=== PATIENT | female | born 1945 | race Caucasian/White ===

== ENCOUNTER → 2017-01-01 | Outpatient (CLI) | payer OTHER ==
[~2017-01-01] MED LIST: ACET-1138 PO; ACET-1256 PO; ASCAUNK PO; ASPCH81X PO; ASPI81TA28 PO; ATOR-14 PO; ATVUNK PO; CALC500C70 PO; CALCTAB13 PO; CLB200 PO; COEN100C11 PO; FLUT0.15 NAE; GLUC250C PO; GLUCTAB7 PO; LEVO112T4 PO; LEVO150T9 PO; LISI-461 PO; LISI10TA PO; MECL25TA2 PO; MULTTAB58 PO; NYSCR30 EXT; OMEG12006 PO; OMEP20CA9 PO; POLYSOL4 OPB; RXC5 PO; SNK PO; VITA400C3 PO
--- NOTE | 2017-01-01 12:40 | MAMMOGRAPHY REPORT ---
BILATERAL DIGITAL SCREENING MAMMOGRAM WITH CAD: 01/01/2017 CLINICAL HISTORY: Routine screening. Patient has no complaints. TECHNIQUE: Current study was also evaluated with a Computer Aided Detection (CAD) system. Bilatera l CC and MLO views were obtained. COMPARISON: Comparison is made to exams dated: 12/07/2015 mammogram, 11/06/2014 mammogram, 11/02/2013 mammogram, 10/28/2012 mammogram, 10/03/2011 mammogram, and 09/30/2010 mammogram - [facility]. BREAST COMPOSITION: There are scattered areas of fibroglandular density in both breasts. FINDINGS: No suspicious masses, calcifications, or areas of architectural distortion are noted in e ither breast. There has been no significant interval change compared to prior exams. Scattered bila teral benign-appearing calcifications are not significantly changed. An oval 4 mm mixed density mas s including fat density is seen within the left lateral breast on the cc view, and is consistent wit h benign fat necrosis. IMPRESSION: ACR BI-RADS CATEGORY 2: BENIGN There is no mammographic evidence of malignancy. A 1 year screening mammogram is recommended. The p atient will receive written notification of the results. Approximately 10% of breast cancers are not detected with mammography. A negative mammographic repor t should not delay biopsy if a clinically suggestive mass is present. Emma Torrez M.D. /:01/01/2017 10:25:39 Nitrating Acid Mixer: Silvia KHOURY)([place]), [facility] letter sent: Normal 1/2 BI-RADS Code: ACR BI-RADS Category 2: Benign
== END | disposition home or self-care (01) ==
LOC: C.MAMM 08:53
PROVIDERS: ATTEND Family Medicine
DX: Z12.31 Encounter for screening mammogram for malignant neoplasm of breast (principal)

== ENCOUNTER → 2017-03-09 | Day surgery (SDC) | payer OTHER ==
[2017-02-25 07:53] VITALS: Ht 165.1 cm; Wt 86.4 kg
[~2017-03-09] VITALS: Ht 165.1 cm; Wt 86.4 kg
[~2017-03-09] MED LIST changes: +500ML BSS 0.3ML EPI 1:1000PF IRRIG ONE; -ACET-1138 PO; +ACETAMINOPHEN 325 MG TAB PO PRN; +AMVISC PLUS 0.8ML SYRINGE INT OCU ONE; -ASPI81TA28 PO; +ATROPINE SULFATE 0.1 MG/ML 5ML SYR IV PRN; -ATVUNK PO; +BRIMONIDINE TART 0.2% OP SOLN PER DROP CHARGE ONE; +BSS FLUSH ONE; -CALCTAB13 PO; -CLB200 PO; +ENDOCOAT 0.85ML SYRINGE INT OCU ONE; +EpHEDrine SULFATE INJ 50 MG/ML AMP IV PRN; +EpINEphrine INJ 1MG/ML AMP 1 MG/ML AMP ONE; -GLUC250C PO; +LACTATED RINGER'S 1000ML 500 ML IV SCH; -LEVO150T9 PO; +LIDOCAINE 4% OP SOLN DROP CHARGE ONE; +LIDOCAINE 4% OP SOLN DROP CHARGE OPR SCH; +LIDOCAINE HCL 1% MPF 2 ML VIAL ONE; -LISI-461 PO; +MIDAZOLAM HCL 1 MG/ML 2ML VIAL ONE; +MOXIFLOXACIN OPH SOLN PER DROP CHARGE ONE; -NYSCR30 EXT; +POVIDONE-IODINE OP SOLN 30 ML BTL ONE; +PROPARACAINE 0.5% OP SOLN PER DROP CHARGE OPR SCH; -RXC5 PO; -SNK PO; +TOBRAMYCIN/DEXAMETHASONE OPH OINT PER APPLN CHARGE ONE
[2017-03-09] MEDS: PHENYLEPHRINE HCL 2.5% OP SOLN PER DROP CHARGE OPR SCH ×2 (09:01→09:06)
[2017-03-09] MEDS: TROPICAMIDE 1% OP SOLN PER DROP CHARGE OPR SCH ×2 (09:02→09:07)
[2017-03-09] MEDS: CYCLOPENTOLATE HCL 1% OP SOLN PER DROP CHARGE OPR SCH ×2 (09:02→09:07)
[2017-03-09] MEDS: KETOROLAC 0.5% OP SOLN PER DROP CHARGE OPR SCH ×2 (09:04→09:08)
[2017-03-09] MEDS: MOXIFLOXACIN OPH SOLN PER DROP CHARGE OPR SCH ×2 (09:05→09:09)
--- NOTE | 2017-03-09 09:21 | History & Physical Bridge - [place] ---
H&P Re-Evaluation Bridge Note: I have examined the patient, reviewed the History & Physical and in the interval since the performance of the History & Physical I have noted the following changes of clinical significance: No changes noted
--- NOTE | 2017-03-09 10:12 | [facility] Post Operative Brief Note ---
Immediate Operative Summary Operative Date March 09, 2017. Pre-Operative Diagnosis Cataract Right Eye Post-Operative Diagnosis Same Procedure(s) Performed Right Cataract Phacoemulsification With Intraocular Lens Implant Surgeon Dr. Mejia Curing Machine Operator Surgeon(s) None Estimated Blood Loss 0 Findings cataract right eye Specimens None Complication(s) None Disposition Recovery Room / PACU
--- NOTE | 2017-03-09 10:12 | Discharge Instructions-SurgCtr ---
Discharge Instructions Date of Service March 09, 2017. Visit Reason for Visit: Cataract Right Eye Discharge Discharge Diagnosis / Problem: cataract right eye Discharge Goals Goal(s): Improve function Activity Recommendations Activity Limitations: per Instructions/Follow-up section Lifting Limitations: no more than 5 pounds Anesthesia . Post Anesthesia Instructions: If you have had General Anesthesia or IV Sedation: * Do not drive today. * Resume driving when surgeon permits. * Do not make important decisions or sign legal documents today. * Call surgeon for: 1. Temperature elevations greater than 101 degrees F. 2. Uncontrollable pain. 3. Excessive bleeding. 4. Persistent nausea and vomiting. 5. Medication intolerance (nausea, vomiting or rash). * For nausea and vomiting use only clear liquids such as: tea, soda, bouillon until nausea subsides, then gradually increase diet as tolerated. * If you have any concerns or questions, call your surgeon's office. If physician is unavailable and it is an emergency, call 911 or go to the nearest emergency room. . Instructions / Follow-Up Instructions / Follow-Up ACTIVITY RECOMMENDATIONS: * Light activities * You may walk outside, read, watch television. * Mild irritation and blurred vision are common for the first few days, redness around the white part of the eye is common. MEDICATIONS: Resume previous medications unless instructed otherwise by your surgeon. Eye drops (today and tomorrow): Cipro - one drop in operative eye every 2 hours while awake Prednisolone 1% - one drop in operative eye every 2 hours while awake Bromfenac - one drop in operative eye once daily SPECIAL CARE INSTRUCTIONS: * If any problems or concerns, please call Dr. Mejia's office at . * Keep plastic shield taped over eye to sleep at night. * Keep plastic shield taped over eye except to administer eye drops. * Keep plastic shield on until office visit the following day. FOLLOW UP VISIT: Follow-up with Dr. Mejia in the [place] office as scheduled. If not already scheduled, please call the office at . Diet Recommendations Home Diet: resume previous diet Procedures Procedures Performed: Right Cataract Phacoemulsification With Intraocular Lens Implant Pending Studies Studies pending at discharge: no Medical Emergencies . Who to Call and When: Medical Emergencies: If at any time you feel your situation is an emergency, please call 911 immediately. . Non-Emergent Contact Non-Emergency issues call your: Rv Servicer . . "Provider Documentation" section prepared by Allen Mejia. .
[2017-03-09 10:14] VITALS: TEMP 36.5
--- NOTE | 2017-03-09 10:30 | Anesthesia Progress Nt - [facility] ---
Anesthesia Post Op Note Date & Time March 09, 2017 at 10:30 Vital Signs Pain Intensity: 0 Vital Signs Past 12 Hours Date Time Temp Pulse Resp B/P Pulse Ox O2 Delivery O2 Flow Rate FiO2 03/09/17 10:14 36.5 63 16 155/84 99 Room Air 03/09/17 08:51 36.6 81 16 159/92 97 Room Air Notes Mental Status: alert / awake / arousable, participated in evaluation Pt Amnestic to Procedure: Yes Nausea / Vomiting: adequately controlled Pain: adequately controlled Airway Patency, RR, SpO2: stable & adequate BP & HR: stable & adequate Hydration State: stable & adequate Anesthetic Complications: no major complications apparent
[2017-03-09 10:33] VITALS: BP 136/80; PULSE 60; O2SAT 100
--- NOTE | 2017-03-09 10:59 | OPERATIVE REPORT ---
DATE OF OPERATION: 03/09/2017 PREOPERATIVE DIAGNOSIS: Cataract, right eye. POSTOPERATIVE DIAGNOSIS: Cataract, right eye. PROCEDURE: Phacoemulsification cataract extraction with intraocular lens placement, right eye. SURGEON: Dr. Mejia. COMPLICATIONS: None. ESTIMATED BLOOD LOSS: None. ANESTHESIA: Topical with sedation. OPERATION AND FINDINGS: After informed consent was obtained in the holding area the patient was wheeled back to the Operating Room where cardiac monitoring leads and oxygen by nasal cannula was administered by Anesthesia. Gentle IV sedation was given, and the patient's right eye was prepped and draped in usual sterile fashion. A wire lid speculum was placed into the right eye and the operating microscope was swung into position. Using 0.12 forceps and a Supersharp blade a paracentesis port was made 3 o'clock hours away from the 1 o'clock position of patient's right eye. 1% non-preserved Lidocaine was then injected into the anterior chamber for anesthesia. A 2.2 mm keratotome blade was then used to make a shelved clear corneal incision at the 1 o'clock position of her right eye. Amvisc was injected into the anterior chamber and a cystotome and Utrata forceps were used to perform a curvilinear capsulorrhexis. BSS on a hydrodissection cannula was used to hydrodissect the lens nucleus away from the capsular bag. The phacoemulsification handpiece was then used in a stop and chop fashion to remove the lens nucleus. The irrigation and aspiration handpiece was then used to remove the residual cortical material. Amvisc was injected into the capsular bag and anterior chamber and a Bausch \T\ Lomb MX60, 20.5 Diopter intraocular lens was injected into the capsular bag. Irrigation and aspiration handpiece was used to remove the residual viscoelastic material. The wounds were hydrated and noted to be watertight. The wire lid speculum was removed from the eye. Vigamox, Brimonidine, and TobraDex ointment were placed on the eye and it was shielded. It should be noted that EndoCoat was used during the case to protect the cornea endothelium. DISPOSITION: The patient tolerated the procedure well and was wheeled to the post anesthesia care unit in stable condition. I attest to the content of the Intraoperative Record and any orders documented therein. Any exceptions are noted below. I attest to the content of the Intraoperative Record and any orders documented therein. Any exceptio ns are noted below.
== END | disposition home or self-care (01) ==
LOC: X.SURG 08:36
PROVIDERS: ATTEND Ophthalmology
DX: H26.9 Unspecified cataract (principal); I10 Essential (primary) hypertension; M19.90 Unspecified osteoarthritis, unspecified site; E66.9 Obesity, unspecified; Z68.32 Body mass index [BMI] 32.0-32.9, adult; Z98.41 Cataract extraction status, right eye; Z90.89 Acquired absence of other organs; Z98.890 Other specified postprocedural states

== ENCOUNTER → 2018-01-05 | Outpatient (CLI) | payer OTHER ==
[~2018-01-05] MED LIST changes: -500ML BSS 0.3ML EPI 1:1000PF IRRIG ONE; -ACETAMINOPHEN 325 MG TAB PO PRN; -AMVISC PLUS 0.8ML SYRINGE INT OCU ONE; -ATROPINE SULFATE 0.1 MG/ML 5ML SYR IV PRN; -BRIMONIDINE TART 0.2% OP SOLN PER DROP CHARGE ONE; -BSS FLUSH ONE; -ENDOCOAT 0.85ML SYRINGE INT OCU ONE; -EpHEDrine SULFATE INJ 50 MG/ML AMP IV PRN; -EpINEphrine INJ 1MG/ML AMP 1 MG/ML AMP ONE; -LACTATED RINGER'S 1000ML 500 ML IV SCH; -LIDOCAINE 4% OP SOLN DROP CHARGE ONE; -LIDOCAINE 4% OP SOLN DROP CHARGE OPR SCH; -LIDOCAINE HCL 1% MPF 2 ML VIAL ONE; -MIDAZOLAM HCL 1 MG/ML 2ML VIAL ONE; -MOXIFLOXACIN OPH SOLN PER DROP CHARGE ONE; -POVIDONE-IODINE OP SOLN 30 ML BTL ONE; -PROPARACAINE 0.5% OP SOLN PER DROP CHARGE OPR SCH; -TOBRAMYCIN/DEXAMETHASONE OPH OINT PER APPLN CHARGE ONE
--- NOTE | 2018-01-05 14:56 | MAMMOGRAPHY REPORT ---
BILATERAL DIGITAL SCREENING MAMMOGRAM TOMOSYNTHESIS WITH CAD: 01/05/2018 CLINICAL HISTORY: Routine screening. Patient has no complaints. TECHNIQUE: Breast tomosynthesis in addition to standard 2D mammography was performed. Current study was also evaluated with a Computer Aided Detection (CAD) system. COMPARISON: Comparison is made to exams dated: 01/01/2017 mammogram, 12/07/2015 mammogram, 11/06/2014 m ammogram, 11/02/2013 mammogram, 10/28/2012 mammogram, and 10/03/2011 mammogram - [facility]. BREAST COMPOSITION: There are scattered areas of fibroglandular density in both breasts. FINDINGS: No suspicious masses, calcifications, or areas of architectural distortion are noted in ei ther breast. There has been no significant interval change compared to prior exams. Scattered bilater al benign-appearing calcifications are not significantly changed. IMPRESSION: ACR BI-RADS CATEGORY 2: BENIGN There is no mammographic evidence of malignancy. A 1 year screening mammogram is recommended. The pa tient will receive written notification of the results. Approximately 10% of breast cancers are not detected with mammography. A negative mammographic report should not delay biopsy if a clinically suggestive mass is present. Emma Torrez M.D. ah/:01/05/2018 10:22:26 Merchandise Flow Team Member: Alejandrina KHOURY)([place]), [facility] letter sent: Normal 1/2 BI-RADS Code: ACR BI-RADS Category 2: Benign
== END | disposition home or self-care (01) ==
LOC: C.MAMM 08:51
PROVIDERS: ATTEND Family Medicine
DX: Z12.31 Encounter for screening mammogram for malignant neoplasm of breast (principal)

== ENCOUNTER 2024-06-20 12:56 | Inpatient (IN) ==
--- OUTSIDE RECORDS SUMMARY | 2024-06-20 13:01 | External Medical Summary | Continuity of Care Document ---
Author Name Unknown Organization [facility] [address] [place] [address] [address] [place], [place] [id number] Care Team Providers Care Dialysis Equipment Technician Name Role Phone Kirsten Myers Primary Care Physician [phone] Encounter [id number] Date(s): 06/13/24 - 06/13/[address] [place] [id number] [facility], [address] [place] [address] [phone] Encounter Diagnosis Dysuria(Discharge Diagnosis) - 06/13/24 UTI symptoms(Discharge Diagnosis) - 06/13/24 UTI (urinary tract infection)(Discharge Diagnosis) - 06/13/24 Low back pain(Discharge Diagnosis) - 06/13/24 History of lumbar spinal fusion(Discharge Diagnosis) - 06/13/24 Dysuria(Final) - Discharge Disposition: Home or Self Care Attending Physician: DO Luke Mehwish Referring Physician: DO Luke Mehwish Allergies, Adverse Reactions, Alerts Substance Criticality Severity Reaction Reaction Severity Status Allergy Not found in Search 1 Metal Active 1metal Assessment and Plan Extracted from: Title:Office Visit Note Author:DO Luke Me hwish Date:06/13/24 1.Dysuria 2.UTI (urinary tract infection) Acute, uncomplicated illness/injury Goal:Resolution Data:unique tests ordered: _Urine wufrw-ll-[id number] and urine culture Plan: -Recommend starting treatment with Bactrimtwice daily for 5 days, she has tolerated this in the past. She was advised to follow-up if her symptoms do not resolve after 5 days 3.Low back pain 4.History of lumbar spinal fusion Chronic condition exacerbated/progressive/side effects of treatment Acute on chronic Goal:Resolution Data:unique tests reviewed: _Lumbar spine imaging which demonstrates lumbar fusionat L5-S1 Plan: -I do think herback painwith symptoms radiating down to her thighare a separate bottle not related to her UTI. Likely exacerbated from recent activity at [employer] and sleeping on a differentmattress than usual. Recommend that she continue to monitor thesesymptoms. She can take acetaminophen for pain relief. She can use ice or heat over the area in her low back. She was advised to follow-up if her symptoms do not improveover the next few days. If persistent, consider XR lumbar spine Time: 32_mins 5_ - pre-visit chart review 22_ - visit, inclusive of history, exam, and discussion of assessment/plan 5_ - post-visit documentation/orders/coordination of care Immunizations Given and Recorded Vaccine Date Status Refusal Reason SARS-CoV-2 (COVID-19) mRNA-1273 vaccine 09/02/23 R ecorded SARS-CoV-2 (COVID-19) mRNA-1273 vaccine 09/02/23 R ecorded influenza virus vaccine, inactivated 08/13/23 Chapin rded influenza virus vaccine, inactivated 08/14/22 Chapin rded influenza virus vaccine, inactivated 07/11/20 Chapin rded influenza virus vaccine, inactivated 07/29/19 Chapin rded influenza virus vaccine, inactivated 07/10/18 Chapin rded influenza virus vaccine, inactivated 08/22/17 Chapin rded influenza virus vaccine, inactivated 09/30/16 Give n influenza virus vaccine, inactivated 08/22/15 Give n influenza virus vaccine, inactivated 08/13/03 Chapin rded SARS-CoV-2 (COVID-19) mRNA BNT-162b2 vax 1 01/04/21 Recorded SARS-CoV-2 (COVID-19) mRNA BNT-162b2 vax 2 12/14/20 Recorded pneumococcal 23-valent vaccine 10/05/18 Given pneumococcal 23-valent vaccine 3 07/29/12 Recorded zoster vaccine, inactivated 09/14/18 Recorded zoster vaccine, inactivated 07/10/18 Recorded tetanus/diphtheria/pertuss, acel (Tdap) 10/14/17 G iven tetanus/diphtheria/pertuss, acel (Tdap) 4 09/30/10 Recorded pneumococcal 13-valent vaccine 04/06/15 Recorded zoster vaccine live 5 10/17/11 Recorded hepatitis B adult vaccine 6 10/15/07 Recorded hepatitis B adult vaccine 7 05/19/06 Recorded hepatitis B adult vaccine 8 11/11/05 Recorded hepatitis B adult vaccine 9 10/09/05 Recorded tetanus toxoids-diphtheria, Td (Adult) 10 05/19/02 Recorded tetanus toxoids-diphtheria, Td (Adult) 11 02/25/90 Recorded 1Result Comment: 2021-09-24: Historical information-source unspecified 2Result Comment: 2021-09-24: Historical information-source unspecified 3Result Comment: 2019-09-06: Historical information-source unspecified 4Result Comment: 2019-09-06: Historical information-source unspecified 5Result Comment: 2019-09-06: Historical information-source unspecified 6Result Comment: 2019-09-06: Historical information-source unspecified 7Result Comment: 2019-09-06: Historical information-source unspecified 8Result Comment: 2019-09-06: Historical information-source unspecified 9Result Comment: 2019-09-06: Historical information-source unspecified 10Result Comment: 2019-09-06: Historical information-source unspecified 11Result Comment: 2019-09-06: Historical information-source unspecified Medications aspirin 81 mg oral tablet Start: 06/06/13 10:42:00 AM EDT, 1 tab, PO, See Instructions, daily Start Date: 06/06/13 Status: Ordered atorvastatin 20 mg oral tablet Start: 04/25/24 10:23:00 AM EDT, See Instructions, Disp# 90 tab, Refills: 3, Take 1 tablet by mouth once daily Start Date: 04/25/24 Status: Ordered Bactrim DS 800 mg-160 mg oral tablet Start: 06/13/24 11:11:00 AM EDT, trimethoprim 1 tab, PO, bid, Disp# 10 tab, Refills: 0, Pharmacy: [id number] Start Date: 06/13/24 Stop Date: 06/18/24 Status: Ordered calcium-vitamin D extended release Start: 02/29/20 10:21:00 AM EDT, See Instructions, daily Start Date: 02/29/20 Status: Ordered Co-Q10 100 mg oral capsule Start: 08/22/15 8:48:00 AM EST, See Instructions, 2 cap PO Daily Start Date: 08/22/15 Status: Ordered diclofenac 1% topical gel Start: 04/25/24 10:23:00 AM EDT, See Instructions, Disp# 100 g, Refills: 1, APPLY 4 GRAMS TOPICALLY 4TIMES DAILY Start Date: 04/25/24 Status: Ordered fluticasone 50 mcg/inh nasal spray Start: 04/25/24 10:23:00 AM EDT, See Instructions, Disp# 3 kit, Refills: 3, USE 2 SPRAYS IN EACH NOSTRIL TWICE DAILY Start Date: 04/25/24 Status: Ordered Glucosamine Chondroitin Advanced Start: 01/22/16 10:05:00 AM EDT, See Instructions, 2 po daily Start Date: 01/22/16 Status: Ordered levothyroxine 112 mcg (0.112 mg) oral tablet Start: 04/25/24 10:23:00 AM EDT, See Instructions, Disp# 90 tab, Refills: 3, Take 1 tablet by mouth once daily Start Date: 04/25/24 Status: Ordered lisinopril 10 mg oral tablet Start: 04/25/24 10:23:00 AM EDT, See Instructions, Disp# 90 tab, Refills: 3, Take 1 tablet by mouth once daily Start Date: 04/25/24 Status: Ordered LORazepam 0.5 mg oral tablet Start: 03/24/23 10:05:00 AM EDT, 1 tab, PO, Daily, Disp# 30 tab, Refills: 3, Note to Pharmacy: [facility]DP verified last fill date 08/31/2019, PRN: as needed for anxiety Start Date: 03/24/23 Status: Ordered meclizine 25 mg oral tablet Start: 03/24/23 10:05:00 AM EDT, 1 tab, PO, tid, Disp# 270 tab, Refills: 3, PRN: as needed for dizziness Start Date: 03/24/23 Status: Ordered Multiple Vitamins oral tablet Start: 06/06/13 10:41:00 AM EDT, 1 tab, PO, See Instructions, daily Start Date: 06/06/13 Status: Ordered omega-3 polyunsaturated fatty acids 1200 mg oral capsule Start: 01/22/16 10:04:00 AM EDT, 1 cap, PO, See Instructions, daily Start Date: 01/22/16 Status: Ordered omeprazole 20 mg oral delayed release capsule Start: 04/25/24 10:23:00 AM EDT, See Instructions, Disp# 90 tab, Refills: 3, Take 1 capsule by mouth once daily Start Date: 04/25/24 Status: Ordered Systane Balance ophthalmic solution Start: 08/22/15 8:49:00 AM EST, 1 drop, both eyes, Daily Start Date: 08/22/15 Status: Ordered Tylenol Start: 06/06/13 10:46:00 AM EDT, 500 mg =, PO Start Date: 06/06/13 Status: Ordered Vitamin D3 1000 intl units (25 mcg) oral tablet Start: 03/26/22 10:21:00 AM EDT, 1 tab, PO, Daily Start Date: 03/26/22 Status: Ordered Problem List Condition Confirmation Course Effective Dates Status H ealth Status Informant Elevated glucose Confirmed Active Keratosis, actinic Confirmed Active Acute cystitis Confirmed Active Acute sinusitis Confirmed Active Acute upper respiratory infection Confirmed Active Elevated alkaline phosphatase measurement Confirmed Active Allergies Confirmed Active Allergy Confirmed Active Anemia Confirmed Active Left ankle pain Confirmed Active Arm pain 1 Confirmed Active Arthritis Confirmed Active Atypical chest pain Confirmed Active Ingrown toenail of both feet Confirmed Active Bursitis, trochanteric Confirmed Active Chest pain Confirmed Active Chest pain Confirmed Active Cholesterol Confirmed Active Colon cancer screening Confirmed Active Estrogen deficiency Confirmed Active Urinary disorder Confirmed Active Dizziness Confirmed Active HARRISON (dyspnea on exertion) Confirmed Active Essential hypertension Confirmed Active Fatigue Confirmed Active GERD without esophagitis Confirmed Active Nicole's disease Confirmed Active Heartburn Confirmed Active Hyperglycemia Confirmed Active Hyperlipidemia Confirmed Active Hypothyroid Confirmed Active IT band syndrome Confirmed Active Ingrown nail Confirmed Active Ruptured lumbar disc Confirmed Active Knee osteoarthritis 2 Confirmed Active Knee osteoarthritis 3 Confirmed Active Knee pain 4 Confirmed Active GEORGE on CPAP Confirmed Active Tinea unguium Confirmed Active Ear pain Confirmed Active Pre-diabetes Confirmed Active Preop testing Confirmed Active Rotator cuff 5 Confirmed Active Snoring Confirmed Active SOB (shortness of breath) 6 Confirmed Active Situational stress Confirmed Active Thyroid Confirmed Active Tick bite Confirmed Active Tinnitus Confirmed Active Trigger finger Confirmed Active Urinary incontinence Confirmed Active UTI symptoms Confirmed Active Viral URI Confirmed Active Weight disorder Confirmed Active 1left 2right 3left 4right 5right shoulder deficiency 6at times Diagnosis Diagnosis Type Effective Dates Health Status Cl inical Service Informant UTI symptoms Discharge Diagnosis 06/13/24 Non-Specified Dysuria Discharge Diagnosis 06/13/24 Non-Specified Low back pain Discharge Diagnosis 06/13/24 Non-Specified History of lumbar spinal fusion Discharge Diagnosis 06/13/24 Non-Specified UTI (urinary tract infection) Discharge Diagnosis 06/13/24 Non-Specified Procedures Procedure Date Related Diagnosis Body Site Status DEXA (dual energy X-ray abso rptiometry) of spine 1 05/29/23 Completed Mammogram 2 03/01/20 Completed Mammogram 3 01/07/19 Completed Mammogram 4 01/05/18 Completed Cataract extraction 5 03/09/17 Com pleted Mammogram 01/01/17 Completed left total knee arthroplasty 04/14/16 Completed X-ray of left knee 6 04/14/16 Comp leted Mammogram - screening 7 11/27/15 C ompleted DEXA - Dual energy X-ray huber ton absorptiometry 8 05/03/15 Completed Colonoscopy 9 01/03/13 Completed Knee replacement 10 09/20/12 Compl eted Tonsillectomy 1953 Completed Arthroplasty of knee 11 C ompleted Spinal fusion 12 Complete d 1AP Spine T-Score: 0.2 DualFemur T-Score: 0.5 2FINDINGS: No suspicious masses, calcifications or areas of architectural distortion are noted in either breast. There has been no significant interval change compared to prior exams. Scattered benign-appearing calcifications are again noted bilaterally. IMPRESSION; ACR BI-RADS CATEGORY 2: BENIGN There is no mammographic evidence of malignancy. A 1 yr screening mammogram is recommended. 03/02/2021. 3No mammographic evidence of malignancy. 1 year screening recommended. 4No mammographic evidence of malignancy. A 1 year screening mammogram is recommended. 5right eye 6L. knee arthroplasty. 7No mammographi evidence of malignancy. Repeat in 1 year. 8[facility] 9[facility] 10right knee 11TK R knee 2014 Results Laboratory List Name Date Urine Chemstick POC Outpt. 06/13/24 Most recent to oldest [Reference Range]: 1 Glucose Urine Dipstick Ref Range [negati ve] (06/13/24 10:59 AM) Bilirubin Urine Dipstick Ref Range [nega tive] (06/13/24 10:59 AM) Specific [place] Urine Ref Range [No Nor mal Defined] (06/13/24 10:59 AM) Protein Urine Dipstick Ref Range [negati ve] (06/13/24 10:59 AM) pH Urine Dipstick Ref Range [4.5 - 8.0] (06/13/24 10:59 AM) Ketones Urine Dipstick Ref Range [negati ve] (06/13/24 10:59 AM) Blood Urine Dipstick Ref Range [negative ] (06/13/24 10:59 AM) Urobilinogen Urine Dipstick Ref Range [0 .2 - 1.0 mg/dL] (06/13/24 10:59 AM) Nitrites Urine Dipstick Ref Range [negat judie] (06/13/24 10:59 AM) Leukocytes Urine Dipstick Ref Range [neg ative] (06/13/24 10:59 AM) U Leuk Est Small (06/13/24 10:59 AM) U Nitrite Negative (06/13/24 10:59 AM) U Urobilinogen 0.2 mg/dl (06/13/24 10:59 AM) U Protein 100 mg/dl (06/13/24 10:59 AM) U pH 5.5 1 (06/13/24 10:59 AM) U Blood Large (06/13/24 10:59 AM) U Spec Grav >1.030 (06/13/24 10:59 AM) U Ketones Negative (06/13/24 10:59 AM) U Bili Negative (06/13/24 10:59 AM) U Gluc Negative (06/13/24 10:59 AM) U Appear Slightly cloudy (06/13/24 10:59 AM) Urine color urine dipstick Yellow (06/13/24 10:59 AM) 1Result Comment: Performed at: [facility], [address] [facility], [address], [place] [address] Orders for Microbiology Reports Name Date Urine Culture (CULTURE, URINE) 06/13/24 Microbiology Reports TEST:Urine.Cx STATUS:Auth (Verified) BODY SITE: SOURCE:Urine COLLECTED DATE/TIME:06/13/24 12:40 PM Status FINAL 06/15/2024 ORGANISM:Escherichia coli Susceptibilty: Escherichia coli Tested Drug Broth TYRON Dilution Broth Interpr etation Trimeth-Sulfamethoxazole <=0.5/9.5 Suscept . Tetracycline <=4 Suscept. Piperacillin Tazobac <=8 Suscept. Nitrofurantoin <=32 Suscept. Levofloxacin <=0.5 Suscept. Gentamicin <=2 Suscept. Ciprofloxacin <=0.25 Suscept. Cefazolin <=2 Suscept. Ampicillin >16 Resistant Ampicillin/Sulbactam 03/06 [facility]. Amoxicillin/Clavulanic A <=8/4 Suscept . Vital Signs Most recent to oldest [Reference Range]: 1 Temperature [36.5-37.9 DegC] 36.2 DegC *LOW* (06/13/24 10:53 AM) Heart Rate 78 bpm (06/13/24 10:53 AM) Respiratory Rate 16 br/min (06/13/24 10:53 AM) Blood Pressure 134/74mmHg (06/13/24 10:53 AM) Cuff Pulse Pressure 60 mmHg (06/13/24 10:53 AM) Social History Social History Type Response Smoking Status Never smoked cigaret harry Sex Female Sex Representation Female (finding) [facility] Outpt Note * DO Luke Mehwish: PERFORM Event Display: [facility] Outpt Note Authored Date: Chief Complaint uti syptoms- urgency and dribbling, urine is dark yellow. History of Present Illness Sherie is a 79yo female seen for acute visit. Gets intermittent UTIs. Was out at [facility]. Tingling and burning and back pain x2.5 weeks.Hematuria on first day, but since resolved. No fevers or chills. Has lower back pain-has history of a back surgery, not sure what type. Pain radiates down right legat times. Has had some constipation as well. Physical Exam Vitals & Measurements T:36.2C HR:78(Monitored) RR:16 BP:134/74 SpO2:97% GENERAL APPEARANCE: The patient is alert, oriented and in no acute distress. VITALS: As above. HEENT: Head is normocephalic/atraumatic. EOM-I. CARDIOVASCULAR: Regular rate and rhythm LUNGS: Clear to auscultation bilaterally. No wheezes/rales/rhonchi. ABDOMEN: Soft, +suprapubic tenderness, nondistended with normal bowel sounds. No rebound/guarding. Back: Negative CVA tenderness. There is tenderness to palpation over the lumbar paraspinal musculature. No midline spinous process tenderness. NEUROLOGICAL: Grossly non-focal exam. SKIN: Warm and dry without any rash. Diagnostic Results Urine vxuvp-mn-kudw: Slightly cloudy,small leukocyte esterase,large amount of blood Assessment/Plan 1.Dysuria 2.UTI (urinary tract infection) Acute, uncomplicated illness/injury Goal:Resolution Data:unique tests ordered: _Urine yyxcf-[id number]-pwsq and urine culture Plan: -Recommend starting treatment with Bactrimtwice daily for 5 days, she has tolerated this in the past. She was advised to follow-up if her symptoms do not resolve after 5 days 3.Low back pain 4.History of lumbar spinal fusion Chronic condition exacerbated/progressive/side effects of treatment Acute on chronic Goal:Resolution Data:unique tests reviewed: _Lumbar spine imaging which demonstrates lumbar fusionat L5-S1 Plan: -I do think herback painwith symptoms radiating down to her thighare a separate bottle not related to her UTI. Likely exacerbated from recent activity at [employer] and sleeping on a differentmattress than usual. Recommend that she continue to monitor thesesymptoms. She can take kelly taminophen for pain relief. She can use ice or heat over the area in her low back. She was advised to follow-up if her symptoms do not improveover the next few days. If persistent, consider XR lumbar spine Time: 32_mins 5_ - pre-visit chart review 22_ - visit, inclusive of history, exam, and discussion of assessment/plan 5_ - post-visit documentation/orders/coordination of care Problem List/Past Medical History Ongoing Acute cystitis Acute sinusitis Acute upper respiratory infection Allergies Allergy Anemia Arm pain Arthritis Atypical chest pain Bursitis, trochanteric Chest pain Chest pain Cholesterol Colon cancer screening Dizziness HARRISON (dyspnea on exertion) Ear pain Elevated alkaline phosphatase measurement Elevated glucose Essential hypertension Estrogen deficiency Fatigue GERD without esophagitis Nicole's disease Heartburn Hyperglycemia Hyperlipidemia Hypothyroid Ingrown nail Ingrown toenail of both feet IT band syndrome Keratosis, actinic Knee osteoarthritis Knee osteoarthritis Knee pain Left ankle pain GEORGE on CPAP Pre-diabetes Preop testing Rotator cuff Ruptured lumbar disc Situational stress Snoring SOB (shortness of breath) Thyroid Tick bite Tinea unguium Tinnitus Trigger finger Urinary disorder Urinary incontinence UTI symptoms Viral URI Weight disorder Procedure/Surgical History DEXA (dual energy X-ray absorptiometry) of spine| Service Date: 05/29/2023Mammogram| Service Date: 03/01/2020Mammogram| Service Date: 01/07/2019Mammogram| Service Date: 01/05/2018Cataract extraction| Service Date: 03/09/2017Mammogram| Service Date: 01/01/2017left total knee arth roplasty| Service Date: 04/14/2016X-ray of left knee| Service Date: 04/14/2016Mammogram - screening| Service Date: 11/27/2015DEXA - Dual energy X-ray photon absorptiometry| Service Date: 05/03/2015Colonoscopy| Service Date: 01/03/2013Knee replacement| Service Date: 09/20/2012Tonsil lectomy| Service Date: rthroplasty of kneeSpinal fusion Medications acetaminophen(Tylenol), 500 mg, PO aspirin(aspirin 81 mg oral tablet), 81 mg= 1 tab, PO atorvastatin(atorvastatin 20 mg oral tablet), See Instructions, 3 refills calcium-vitamin D(calcium-vitamin D extended release), See Instructions cholecalciferol(Vitamin D3 1000 intl units (25 mcg) oral tablet), 25 mcg= 1 tab, PO, Daily chondroitin/glucosamine/methylsulfonylmethane(Glucosamine Chondroitin Advanced), See Instructions diclofenac topical(diclofenac 1% topical gel), See Instructions, 1 refills fluticasone nasal(fluticasone 50 mcg/inh nasal spray), See Instructions, 3 refills levothyroxine(levothyroxine 112 mcg (0.112 mg) oral tablet), See Instructions, 3 refills lisinopril(lisinopril 10 mg oral tablet), See Instructions, 3 refills LORazepam(LORazepam 0.5 mg oral tablet), 0.5 mg= 1 tab, PO, Daily, PRN, 3 refills meclizine(meclizine 25 mg oral tablet), 25 mg= 1 tab, PO, tid, PRN, 3 refills multivitamin(Multiple Vitamins oral tablet), 1 tab, PO ocular lubricant(Systane Balance ophthalmic solution), 1 drop, both eyes, Daily omega-3 polyunsaturated fatty acids(omega-3 polyunsaturated fatty acids 1200 mg oral capsule), 1200mg= 1 cap, PO omeprazole(omeprazole 20 mg oral delayed release capsule), See Instructions, 3 refills sulfamethoxazole-trimethoprim(Bactrim DS 800 mg-160 mg oral tablet), 1 tab, PO, bid ubiquinone(Co-Q10 100 mg oral capsule), See Instructions Allergies Allergy Not found in [employer] Social History Smoking Status Never smoked cigarettes Alcohol - Denies Alcohol Use Tobacco - Denies Tobacco Use Use:Never smoker Family History Cancer: Unknown. Cervical cancer: Mother. Heart disease: Unknown. Health Status Family Member(s) Immunizations Vaccine Date Status SARS-CoV-2 (COVID-19) mRNA-1273 vaccine 09/02/2023 Recorded SARS-CoV-2 (COVID-19) mRNA-1273 vaccine 09/02/2023 Recorded influenza virus vaccine, inactivated 08/13/2023 Recorded influenza virus vaccine, inactivated 08/14/2022 Recorded SARS-CoV-2 (COVID-19) mRNA BNT-162b2 vax 01/04/2021 Recorded Comments : 2021-09-24: Historical information-source unspecified SARS-CoV-2 (COVID-19) mRNA BNT-162b2 vax 12/14/2020 Recorded Comments : 2021-09-24: Historical information-source unspecified influenza virus vaccine, inactivated 07/11/2020 Recorded influenza virus vaccine, inactivated 07/29/2019 Recorded pneumococcal 23-valent vaccine 10/05/2018 Given zoster vaccine, inactivated 09/14/2018 Recorded influenza virus vaccine, inactivated 07/10/2018 Recorded zoster vaccine, inactivated 07/10/2018 Recorded tetanus/diphtheria/pertuss, acel (Tdap) 10/14/2017 Given influenza virus vaccine, inactivated 08/22/2017 Recorded influenza virus vaccine, inactivated 09/30/2016 Given influenza virus vaccine, inactivated 08/22/2015 Given pneumococcal 13-valent vaccine 04/06/2015 Recorded pneumococcal 23-valent vaccine 07/29/2012 Recorded Comments : 2019-09-06: Historical information-source unspecified zoster vaccine live 10/17/2011 Recorded Comments : 2019-09-06: Historical information-source unspecified tetanus/diphtheria/pertuss, acel (Tdap) 09/30/2010 Recorded Comments : 2019-09-06: Historical information-source unspecified hepatitis B adult vaccine 10/15/2007 Recorded Comments : 2019-09-06: Historical information-source unspecified hepatitis B adult vaccine 05/19/2006 Recorded Comments : 2019-09-06: Historical information-source unspecified hepatitis B adult vaccine 11/11/2005 Recorded Comments : 2019-09-06: Historical information-source unspecified hepatitis B adult vaccine 10/09/2005 Recorded Comments : 2019-09-06: Historical information-source unspecified influenza virus vaccine, inactivated 08/13/2003 Recorded tetanus toxoids-diphtheria, Td (Adult) 05/19/2002 Recorded Comments : 2019-09-06: Historical information-source unspecified tetanus toxoids-diphtheria, Td (Adult) 02/25/1990 Recorded Comments : 2019-09-06: Historical information-source unspecified Recommendations Health Maintenance Pending(in the next year) OverDue Adult Influenza Vaccine due04/17/24and every 1year Due Adult COVID-19 Vaccination due06/13/24Unknown Frequency Adult Social Determinants of Health Screening due06/13/24Unknown Frequency Medicare Annual Wellness Visit due06/13/24and every 1year Due In Future Body Mass Index not due until04/26/25and every Satisfied(in the past 1 year) Satisfied Adult COVID-19 Vaccination on09/02/23.Satisfied by CALVIN Hannah Angela Adult Influenza Vaccine on08/13/23.Satisfied by CALVIN Hannah Angela Body Mass Index on04/25/24.Satisfied by CALVIN Hannah Angela Colorectal Cancer Screening on10/21/23.Satisfied by TREY Lee Lisa Lipid Screening on04/29/24.Satisfied by Contributor_system, [employer] Electronic Signature on File CC: Kirsten Myers DO [address] [place] [address] Electronically Reviewed/Signed by: Janeen Luke DO Author Signature Dt/Tm:06/13/2024 12:05 PM Division of Sports Medicine MM Patient Care team information Care Team Personnel Name: DO Myers Kristen M Position: Physician - Family Med Member Role: Primary Care Provider Address: [address] [place] [address] [place] Care Team Related Persons Name: VINAY NÚÑEZ Name: TIMA FONTAINE Name: TIMA FONTAINE Name: TIMA HUNT"
--- OUTSIDE RECORDS SUMMARY | 2024-06-20 13:01 | External Medical Summary | Continuity of Care Document ---
Author Name Unknown Organization [facility] [address] Address [address] [place], [place] [id number] Care Team Providers Care Fur Joiner Name Role Phone Kirsten Myers Primary Care Physician [phone] Encounter [facility] [id number] Date(s): 04/29/24 - 04/29/24 [facility] [address] [facility] [place] 1 [facility] [address]ajan, [facility] 1 [place], [place] [phone] Encounter Diagnosis Encounter for screening for malignant neoplasm of intestinal tract, unspecified (Final) - Encounter for immunization safety counseling(Final) - Hyperlipidemia, unspecified(Final) - Anemia, unspecified(Final) - Hyperglycemia, unspecified(Final) - Hypothyroidism, unspecified(Final) - Discharge Disposition: Home or Self Care Attending Physician: DO Myers Kristen M Referring Physician: DO Myers Kristen M Allergies, Adverse Reactions, Alerts Substance Criticality Severity Reaction Reaction Severity Status Allergy Not found in Search 1 Metal Active 1metal Immunizations Given and Recorded Vaccine Date Status [...] once daily Start Date: 04/25/24 Status: Ordered calcium-vitamin D extended release Start: [...] 3left 4right 5right shoulder deficiency 6at times Procedures Procedure Date Related Diagnosis Body Site [...] evidence of malignancy. Repeat in 1 year. [facility] at [facility] 10right knee 11TK R knee 12Jul 19, 2015 Results Laboratory List Name Date Complete Blood Count w Differential (CBC ,DIFFH) 04/29/24 Comprehensive Metabolic Panel (COMP META B PANEL) 04/29/24 Hemoglobin A1C (HEMOGLOBIN, A1C) 04/29/24 Lipid Profile (LIPOPROTEINS) 04/29/24 Thyroid Stimulating Hormone (TSH) 4 Vitamin B12 Level (VITAMIN B12) 04/29/24 Most recent to oldest [Reference Range]: 1 eGFR CKD-EPI [>60 mL/min/1.73 m2] >90 mL /min/1.73 m2 1 (04/29/24 9:57 AM) Estimated Average Glucose 134 mg/dL 2 (04/29/24 9:57 AM) Non-HDL 135 mg/dL 3 (04/29/24 9:57 AM) Estimated CrCl 87.20 mL/min (04/29/24 11:24 AM) MPV [9.0-12.2 fL] 10.7 fL (04/29/24 9:57 AM) Immature Gran% 0.4 % (04/29/24 9:57 AM) Neut% 51.7 % (04/29/24 9:57 AM) Lymph% 33.4 % (04/29/24 9:57 AM) [place]% 11.9 % (04/29/24 9:57 AM) Baso% 0.6 % (04/29/24 9:57 AM) Eos% 2.0 % (04/29/24 9:57 AM) Immat Gran, Abs [0-0.4 K/uL] 0.02 K/uL (04/29/24 9:57 AM) Neut, Abs [2.0-7.7 K/uL] 2.55 K/uL (04/29/24 9:57 AM) Lymph, Abs [1.0-3.4 K/uL] 1.65 K/uL (04/29/24 9:57 AM) [place], Abs [0-1.0 K/uL] 0.59 K/uL (04/29/24 9:57 AM) Baso, Abs [0-0.1 K/uL] 0.03 K/uL (04/29/24 9:57 AM) Eos, Abs [0-0.5 K/uL] 0.10 K/uL (04/29/24 9:57 AM) Type of Diff: AUTO *Unknown* (04/29/24 9:57 AM) RDW [11.5-14.2 %] 14.4 % *HI* (04/29/24 9:57 AM) Anion Gap [5-14 mmol/L] 4 mmol/L *LOW* (04/29/24 9:57 AM) Alb [3.5-5.0 g/dL] 4.3 g/dL (04/29/24 9:57 AM) Alk Phos [38-126 unit/L] 103 unit/L (04/29/24 9:57 AM) ALT [<35 unit/L] 32 unit/L (04/29/24 9:57 AM) AST [15-46 unit/L] 37 unit/L (04/29/24 9:57 AM) B12 [211-946 pg/mL] 753 pg/mL (04/29/24 9:57 AM) BUN [7-20 mg/dL] 14 mg/dL (04/29/24 9:57 AM) Ca [8.4-10.2 mg/dL] 9.2 mg/dL (04/29/24 9:57 AM) Chol/HDL 4 (04/29/24 9:57 AM) Chol [125-200 mg/dL] 174 mg/dL (04/29/24 9:57 AM) Cl- [96-107 mmol/L] 108 mmol/L *HI* (04/29/24 9:57 AM) HCO3 [22-30 mmol/L] 26 mmol/L (04/29/24 9:57 AM) Cret [0.60-1.00 mg/dL] 0.64 mg/dL (04/29/24 9:57 AM) HbA1c [4.0-6.0 %] 6.3 % *HI* (04/29/24 9:57 AM) Glu [74-106 mg/dL] 103 mg/dL (04/29/24 9:57 AM) Hct [35-44 %] 41.1 % (04/29/24 9:57 AM) HDL [>35 mg/dL] 39 mg/dL (04/29/24 9:57 AM) Hgb [11.7-15.0 g/dL] 13.1 g/dL (04/29/24 9:57 AM) K [3.5-5.1 mmol/L] 4.9 mmol/L (04/29/24 9:57 AM) LDL Chol, Calculated [50-130 mg/dL] 105 mg/dL (04/29/24 9:57 AM) MCH [28-33 pg] 27.8 pg *LOW* (04/29/24 9:57 AM) MCHC [32-36 g/dL] 31.9 g/dL *LOW* (04/29/24 9:57 AM) MCV [81-96 fL] 87.1 fL (04/29/24 9:57 AM) Na [137-145 mmol/L] 138 mmol/L (04/29/24 9:57 AM) Plts [150-350 K/uL] 221 K/uL 4 (04/29/24 9:57 AM) RBC [3.90-5.00 M/uL] 4.72 M/uL (04/29/24 9:57 AM) T Bili [0.2-1.3 mg/dL] 1.0 mg/dL (04/29/24 9:57 AM) Prot [6.3-8.2 g/dL] 7.4 g/dL (04/29/24 9:57 AM) TG [<200 mg/dL] 151 mg/dL (04/29/24 9:57 AM) TSH [0.47-4.68 uIU/mL] 2.26 uIU/mL 5 (04/29/24 9:57 AM) WBC [4.0-10.4 K/uL] 4.94 K/uL (04/29/24 9:57 AM) 1Result Comment: Testing Performed By: Dept of Pathology [facility] Rickey Natarajan, [address] [place] [address], [place] [address] 2Result Comment: Testing Performed [facility]: [facility], [address] [place] [address], [place] [address] 3Result Comment: Testing Performed By: Dept of Pathology [facility] Rickey Natarajan, [address] [place] [address], [place] [address] 4Result Comment: CHECKED 5Result Comment: Testing Performed By: [facility], [address] [place] [address], [place] [address] Social History Social History Type Response Smoking Status Never smoked cigaret harry Sex Female Patient Care team information Care Team Personnel Name: DO Myers Kristen M Position: Physician - Family Med Member Role: Primary Care Provider Address: Address: [address] [place] [address], [place] [address] [place] Care Team Related Persons Name: VINAY NÚÑEZ Address: home No Address Provided Name: TIMA FONTAINE Address: home [address] [place] [address] GEORGINA BHARDWAJ [phone] Name: TIMA FONTAINE Address: home [address] [place] [address] DR BHARDWAJ, [phone] Name: TIMA HUNT Address: home [address] [place] [address] GEORGINA BHARDWAJ [phone]
--- OUTSIDE RECORDS SUMMARY | 2024-06-20 13:01 | External Medical Summary | Continuity of Care Document ---
Author Name Unknown Organization [place] [address] [facility] Address [address] [place], [place] [id number] Care Team Providers Care Bridges And Buildings Supervisor Name Role Phone Kirsten Myers Primary Care Physician [phone] [id number] Date(s): 05/19/24 - 05/19/24 [facility] [address], [address] [place] [address] [phone] Discharge Disposition: Home or Self Care Attending Physician: DO Myers Kristen M Allergies, Adverse [...] of spine 1 05/29/23 Completed Mammogram 2 5/14/20 Completed Mammogram 3 01/07/19 Completed Mammogram 4 [...] in 1 year. [facility] 9[facility] Jacob at [facility] 10right knee 11TK R knee 2014 Results Radiology Reports * Exam Date Time Procedure Performing Provider Status 05/19/24 1:31 PM VL Carotid Duplex Bilateral Neftaly Singh R; Final Notes: (VL Carotid Duplex Bilateral) Reason For Exam: bruit on right VL Carotid Duplex Bilateral [facility] FINAL REPORT Name: FARZANEH HUNT : 1945 Visit: [id number] Date: 19 May 2024 TYPE OF TEST: Cerebrovascular Duplex REASON FOR TEST R Carotid bruit INTERPRETATION/FINDINGS Arterial duplex imaging of the bilateral extracranial carotid arteries was performed. 1. No hemodynamically significant stenosis in the bilateral internal carotid arteries. 2. Normal flow in the bilateral external carotid arteries. 3. Antegrade flow in the bilateral vertebral arteries 4. Normal flow in the bilateral subclavian arteries. Plaque Morphology: Minimal calcified plaque in the right carotid bulb Retrospective comparison: No prior exams available for comparison. IMPRESSION/COMMENTS I have personally reviewed the data relevant to the interpretation of this study. TECHNOLOGIST: HANSEL Valencia,RDMS,RVT PHYSICIAN: Reuben Schaefer MD Signed: 05/20/2024 09:56 AM Final Dictated by:MD Schaefer John F Dictated DT/TM:05/20/2024 9:56 Signed by:MD Schaefer John F Signed (Electronic Signature):05/20/2024 9:56 a Transcribed by:DANIEL Social History Social History Type Response Smoking Status Never smoked cigaret harry Sex Female Sex Representation Female (finding) Patient Care team information Care Team Personnel Name: DO Myers Kristen M Position: Physician - Family Med Member Role: Primary Care Provider Address: [address] [place] [address] [place] Care Team Related Persons Name: VINAY NÚÑEZ Name: TIMA FONTAINE Name: TIMA FONTAINE Name: TIMA HUNT
--- OUTSIDE RECORDS SUMMARY | 2024-06-20 13:02 | External Medical Summary | Continuity of Care Document ---
Author Name Unknown Organization [facility] [address] [place] [address] [facility] [place], [place] [id number] Care Team Providers Care Clerk Checker Name Role Phone Kirsten Myers Primary Care Physician [phone] [id number] Date(s): 04/27/24 - 04/27/[address] [facility] [address] [facility], [address] [place] [address] [phone] Discharge Disposition: Home or Self Care Attending [...] in 1 year. [facility] [address] 10right knee 11TK R knee 12Jul 19, 2015 Social History Social History Type Response Smoking Status Never smoked cigaret harry Sex Female Patient Care team information Care Team Personnel Name: DO Myers Kristen M Position: Physician - Family Med Member Role: Primary Care Provider Address: Address: [address] [place] [address], [place] [address] [place] Care Team Related Persons Name: VINAY NÚÑEZ Address: home No Address Provided Name: TIMA FONTAINE Address: home [address] [facility] [place]GINA BHARDWAJ [phone] Name: TIMA FONTAINE Address: home [address] [facility] [address] BHARDWAJ, [phone] Name: TIMA HUNT Address: home [address] [facility] GEORGINA BHARDWAJ [phone]
--- OUTSIDE RECORDS SUMMARY | 2024-06-20 13:02 | External Medical Summary | Continuity of Care Document ---
Author Name Unknown Organization [facility] [address] [place] [address] Address [address] [place], [place] [id number] Care Team Providers Care Mysql Database Administrator Name Role Phone Kirsten Myers Primary Care Physician [phone] Encounter [facility] [id number] Date(s): 04/25/24 - 04/25/[address] [place] [address] [facility], [address] [place] [address] [phone] Encounter Diagnosis Body mass index [BMI] 38.0-38.9, adult(Discharge Diagnosis) - 04/25/24 Colon cancer screening(Discharge Diagnosis) - 04/25/24 Immunization counseling(Discharge Diagnosis) - 04/25/24 Hyperlipidemia(Discharge Diagnosis) - 04/25/24 Anemia(Discharge Diagnosis) - 04/25/24 Hyperglycemia(Discharge Diagnosis) - 04/25/24 Hypothyroid(Discharge Diagnosis) - 04/25/24 HARRISON (dyspnea on exertion)(Discharge Diagnosis) - 04/25/24 Bruit of right carotid artery(Discharge Diagnosis) - 04/25/24 GEORGE on CPAP(Discharge Diagnosis) - 04/25/24 Toe pain, right(Discharge Diagnosis) - 04/25/24 Discharge Disposition: Home or Self Care Attending Physician: DO Myers Kristen M Referring Physician: DO Myers Kristen M Allergies, Adverse Reactions, Alerts Substance Criticality Severity Reaction Reaction Severity Status Allergy Not found in Search 1 Metal Active 1metal Assessment and Plan Extracted from: Title:Office Visit Note Author:DO Myers Kriste n M Date:04/25/24 1.Colon cancer screening Chronic condition, stable Goal:Resolution Data:unique tests ordered: _ Plan: _done 11/11--due 11/14--discussed Q 3 years and percentages and colonoscopy pro/cons 2.Immunization counseling Chronic condition, stable Goal:Resolution Data:unique tests ordered: _ Plan: _ok to get RSV vaccine 3.Hyperlipidemia Chronic condition, stable Goal:Resolution Data:unique tests ordered: _ Plan: _check lipid and cmp 4.Anemia Chronic condition, stable Goal:Resolution Data:unique tests ordered: _ Plan: _check cbc 5.Hyperglycemia Chronic condition, stable Goal:Resolution Data:unique tests ordered: _ Plan: _check A1c 6.Hypothyroid Chronic condition, stable Goal:Resolution Data:unique tests ordered: _ Plan: _TSH 7.HARRISON (dyspnea on exertion) Chronic condition, stable Goal:Resolution Data:unique tests ordered: _ Plan: _EKG today 8.Bruit of right carotid artery Chronic condition, stable Goal:Resolution Data:unique tests ordered: _c Plan: _carotid doppler 9.GEORGE on CPAP Chronic condition, stable Goal:Resolution Data:external notes including: _ Plan: _discuss I will get her most recent AHI 10.Toe pain, right Chronic condition, stable Goal:Resolution Data:unique tests ordered: _ Plan: _referral to [facility] Immunizations Given and Recorded Vaccine Date Status [...] PO, Daily Start Date: 03/26/22 Status: Ordered Mental Status 04/25/24 Barriers to Learning one year None evide nt Mandatory Health Literacy Documentation Yes Health Literacy Communication Barriers N ever Primary Language Czech Problem List Condition Confirmation Course Effective Dates [...] Diagnosis Diagnosis Type Effective Dates Health Status Clinical Service Informant Body mass index [BMI] 38.0-38.9, adult Discharge Diagnosis 04/25/24 Non-Specified Hyperlipidemia Discharge Diagnosis 04/25/24 Non-Specified Anemia Discharge Diagnosis 04/25/24 Non-Specified Hypothyroid Discharge Diagnosis 04/25/24 Non-Specified Bruit of right carotid artery Discharge Diagnosis 04/25/24 Non-Specified Colon cancer screening Discharge Diagnosis 04/25/24 Non-Specified Hyperglycemia Discharge Diagnosis 04/25/24 Non-Specified HARRISON (dyspnea on exertion) Discharge Diagnosis 04/25/24 Non-Specified GEORGE on CPAP Discharge Diagnosis 04/25/24 Non-Specified Immunization counseling Discharge Diagnosis 04/25/24 Non-Specified Toe pain, right Discharge Diagnosis 04/25/24 Non-Specified Procedures Procedure Date Related Diagnosis Body [...] in 1 year. [facility] at [facility] 10right knee 11TK R knee 12Jul 19, 2015 Vital Signs Most recent to oldest [Reference Range]: 1 Height 162.5 cm (04/25/24 9:54 AM) Patient Weight 102.7 kg (04/25/24 9:54 AM) Body Mass Index 38.89 kg/m2 (04/25/24 9:54 AM) Temperature [36.5-37.9 DegC] 36.0 DegC *LOW* (04/25/24 9:54 AM) Heart Rate 67 bpm (04/25/24 9:54 AM) Blood Pressure 140/72mmHg (04/25/24 9:54 AM) Cuff Pulse Pressure 68 mmHg (04/25/24 9:54 AM) Social History Social History Type Response Smoking Status Never smoked cigaret harry Sex Female Cardiology * Contributor_system, MUSE01: VERIFY, PERFORM Event Display: EKG Authored Date: Please click on link to see image. FCM Outpt Note * DO Myers Kristen M: PERFORM Event Display: FCM Outpt Note Authored Date: Chief Complaint 6 month f/u. History of Present Illness Pt presents to discuss multiple issues. She states she broke her big toe years ago and it now is paining her. Physical Exam Vitals & Measurements T:36.0C HR:67(Monitored) BP:140/72 SpO2:96% HT:162.5cm WT:102.700kg(Dosing) WT:102.7kg BMI:38.89 PHQ2 Data(Data Documented on:04/25/2024 09:52) Emotional health assessment NEGATIVE G: AAAOx3, NAD H: RR normal S1/S2 no M/R/G L: CTA b/l no r/r/w HEENT: external ear canal and TM wnl, oral mucosa moist, no lymphadenopathy, bruit on right--faint A: soft +bs nt nd E: no c/C/E b/l, pos distal pulses P: normal affect and insight, no homicidal/suicidal ideation Assessment/Plan 1.Colon cancer screening Chronic condition, stable Goal:Resolution Data:unique tests ordered: _ Plan: _done 11/11--due 11/14--discussed Q 3 years and percentages and colonoscopy pro/cons 2.Immunization counseling Chronic condition, stable Goal:Resolution Data:unique tests ordered: _ Plan: _ok to get RSV vaccine 3.Hyperlipidemia Chronic condition, stable Goal:Resolution Data:unique tests ordered: _ Plan: _check lipid and cmp 4.Anemia Chronic condition, stable Goal:Resolution Data:unique tests ordered: _ Plan: _check cbc 5.Hyperglycemia Chronic condition, stable Goal:Resolution Data:unique tests ordered: _ Plan: _check A1c 6.Hypothyroid Chronic condition, stable Goal:Resolution Data:unique tests ordered: _ Plan: _TSH 7.HARRISON (dyspnea on exertion) Chronic condition, stable Goal:Resolution Data:unique tests ordered: _ Plan: _EKG today 8.Bruit of right carotid artery Chronic condition, stable Goal:Resolution Data:unique tests ordered: _c Plan: _carotid doppler 9.GEORGE on CPAP Chronic condition, stable Goal:Resolution Data:external notes including: _ Plan: _discuss I will get her most recent AHI 10.Toe pain, right Chronic condition, stable Goal:Resolution Data:unique tests ordered: _ Plan: _referral to [facility] Attestation I spent4 mintime in previsit planning including prepping note and chart review . I spent34 +2 EKGtime in face to face interaction with patient concerning the issues that brought them in today. I spent4 min time in post visit planning including finishing note and depart process Total time spent today on patient visit44 min Problem List/Past Medical History Ongoing Acute cystitis [...] kneeSpinal fusion Medications acetaminophen(Tylenol), 500 mg, PO amoxicillin-clavulanate(Augmentin 875 mg-125 mg oral tablet), 1 tab, PO, q12h aspirin(aspirin 81 mg oral tablet), 81 mg= [...] delayed release capsule), See Instructions, 3 refills ubiquinone(Co-Q10 100 mg oral capsule), See Instructions [...] Recommendations Health Maintenance Pending(in the next year) Due Adult Influenza Vaccine due04/17/24and every 1year Adult COVID-19 Vaccination due04/25/24Unknown Frequency Adult Social Determinants of Health Screening due04/25/24Unknown Frequency Medicare Annual Wellness Visit due04/25/24and every 1year Satisfied(in the past 1 year) Satisfied Adult COVID-19 Vaccination on09/02/23.Satisfied by CALVIN Hannah Angela Adult Influenza Vaccine on08/13/23.Satisfied by CALVIN Hannah Angela Body Mass Index on04/25/24.Satisfied by CALVIN Hannah Angela Colorectal Cancer Screening on10/21/23.Satisfied by TREY Lee Lisa Electronic Signature on File Electronically Reviewed/Signed by: Kirsten Myers DO Author Signature Dt/Tm:04/27/2024 01:41 PM Department of Family Medicine [facility] Patient Care team information Care Team Personnel Name: DO Myers Kristen M Position: Physician - Family Med Member Role: Primary Care Provider Address: Address: [address] [place] [address] [place] Care Team Related Persons Name: VINAY NÚÑEZ Address: home No Address Provided Name: TIMA FONTAINE Address: home [address] [place] [address] [place]ORGINA BHARDWAJ [phone] Name: TIMA FONTAINE Address: home [address] [place] [address] DR BHARDWAJ, [phone] Name: TIMA HUNT Address: home [address] [place] [address] GEORGINA BHARDWAJ [phone]"
[2024-06-20 13:33] LABS: Basophils # (auto) 0.06 K/uL (0.00-0.20); Basophils % (auto) 0.8 %; Eosinophils # (auto) 0.07 K/uL (0.00-0.50); Hematocrit (blood only) 39.1 % (37.0-47.0); Hemoglobin 12.9 g/dl (12.0-16.0); Immature Granulocytes # (auto) 0.02 K/uL (0.01-0.20); Immature Granulocytes % (auto) 0.3 %; Mean Corpuscular Hemoglobin 27.3 pg (25.0-34.0); Mean Corpuscular Volume 82.7 fL (80.0-100.0); Mean Platelet Volume 9.5 fL (9.4-12.4); Monocytes % (auto) 9.7 %; Neutrophils # (auto) 4.56 K/uL (1.40-6.50); Neutrophils % (auto) 63.2 %; Platelet Count 413 K/uL (130-400); RDW Coefficient of Variation 13.9 % (11.5-14.5); RDW Standard Deviation 41.3 fL (36.4-46.3); Red Blood Count 4.73 M/uL (4.20-5.40); White Blood Count 7.21 K/ul (4.8-10.8)
[2024-06-20 14:09] LABS: Appearance Urine Cloudy (Clear); Bacteria Urine Automated None Seen (None Seen); Bilirubin Urine Negative (Negative); Blood Urine Negative (Negative); Cast Urine Automated 0-2 /lpf (0-2); Color Urine Dark Yellow; Epithelial Cell Urine Auto 0-2 /hpf (0-2); Glucose Urine UA Negative (Negative); Hyaline Casts Urine Present /lpf (None Presnt); Ketones Urine Negative (Negative); Leukocyte Esterase Urine 3+ (Negative); Nitrite Urine Negative (Negative); Protein Urine Trace (Negative); Urobilinogen Urine Negative (Negative); WBC Urine Automated >50 /hpf (0-5)
[2024-06-20] MEDS: SODIUM CHLORIDE 0.9% 500 ML IV ONE (14:13)
--- NOTE | 2024-06-20 14:35 | Emergency Department Note ---
Impression & Plan Weakness, Acute UTI, Failure of outpatient treatment, Lumbar compression fracture ED Provider Note NAME: FARZANEH HUNT AGE: 79 SEX: F : 1945 ARRIVES VIA: Walk-In INFORMANT: [Patient][family] ED PROVIDER(S): [Natalio Nichols MD] CHIEF COMPLAINT: Back injury, back pain HISTORY OF PRESENT ILLNESS: The patient is a 79-year-old female who had urinary symptoms for 2 weeks before seeing her doctor about a week ago. She was placed on 5 days of Bactrim. She thought the Bactrim may be helped a bit but has noticed in the last few days, increasing lower back pain and also some occasional numbness in the right leg. She states the back pain is worse with any movement. As per the family, the patient has had decreased activity the last few days, she has been resting more, she has been quite a bit less active. She actually ask people to do some things around the house for her which is unusual. The patient has not had fever, she has not had cough or congestion. No shortness of breath. Patient did have back surgery years ago, she is concerned that something may be wrong with the surgery although, she has not fallen. PMHx/PSHx/Social Hx: See Below PHYSICAL EXAM: GENERAL: Patient is in no acute distress. HEENT: No acute trauma, normocephalic atraumatic, mucous membranes moist, no nasal congestion. NECK: No stridor, no adenopathy, no meningismus, trachea is midline. LUNGS: Clear to auscultation bilaterally, no wheeze, no rhonchi, breath sounds equal. HEART: Without murmurs gallops or rubs, regular rate and rhythm. ABDOMEN: Soft, nontender, no peritonitis. EXTREMITIES: No cyanosis, full range of motion of all the joints without pain or difficulty. NEUROLOGIC: Oriented x 3, no acute motor or sensory deficits, no focal weakness. SKIN: No jaundice, no diaphoresis. Back: Bilateral flank discomfort to percussion. Her pain does worsen with any movement. DIFFERENTIAL DIAGNOSIS: Pyelonephritis, renal colic, hydronephrosis, failed outpatient management, musculoskeletal pain, sciatica, among others. EMERGENCY DEPARTMENT PROCEDURES: MEDICAL DECISION MAKING: There is no leukocytosis or concerning anemia. Platelet count is slightly elevated. Sodium somewhat low at 134, not in need of emergent correction. There was no renal failure. No concerning liver enzyme elevation. Urinalysis does show findings of infection, urine culture is pending. Abdominal and pelvis CT shows inflammation of the bladder, there is no urinary obstruction. Lumbar spine CT shows an L3 compression fracture. On exam, the patient was not febrile or toxic. The patient received IV saline for hydration. She was ordered for IV ceftriaxone as antibiotic coverage. She did not want anything for pain as her pain was present mostly with movement. She was fine lying on the stretcher. The patient appears to have 2 issues. She has a new L3 compression fracture which I do think explains the majority of her back pain. She also has failed outpatient treatment for a UTI and I do think requires IV antibiotic therapy. The patient has been weak, she has been washed out, I suspect her weakness is from the infection. Of note, the cause of the L3 compression fracture is unclear as the patient cannot recall falling. Prior/Outside records/notes reviewed: None Imaging/x-ray results per my interpretation: Chronic Medical/Social conditions affecting care: Advanced age Care/Management discussed with: Case management, the on-call hospitalist Level of care consideration(s): After review of the information above and other included data: --I believe the patient requires escalation of care to admission DISPOSITION: Admission Past Med/Surg History Problem List (Updated 06/03/18 @ 02:02 by [employer] Vt) UTI (urinary tract infection) Osteoporosis (Chronic) Hypothyroidism (Chronic) GERD (gastroesophageal reflux disease) (Chronic) HLD (hyperlipidemia) (Chronic) HTN (hypertension) (Chronic) S/P tonsillectomy and adenoidectomy (Chronic) Status post total knee replacement, right (Chronic) Intractable back pain (Acute) Lumbar stenosis with neurogenic claudication (Acute) Post-operative state Social History Smoking Status: Never smoker Feels Safe at Home: Yes Allergies Allergies Allergy/AdvReac Type Severity Reaction Status Date / Time No Known Drug Allergies Allergy Unknown . Verified 03/09/17 08:48 METAL Allergy Unknown BUMPS ON Uncoded 02/25/17 07:47 SKIN Home Meds Home Medications Medication Instructions Recorded Confirmed Ascorbic Acid (Vitamin C Unknown 500 mg PO QAM ##0 08/19/12 Dose) COENZYME Q10 (UBIDECARENONE) 100 mg PO QAM ##0 07/16/15 (COQ-10) Calcium/Vitamin D (Os-Amarjit 500 Plus 1 tab PO QAM #0 tabs 02/25/17 D) [id number] C- 1 tab PO BID ##0 02/25/17 (GLUCOSAMINE CHONDROITIN) aspirin 81 mg chewable tablet 81 mg PO QAM 06/20/24 06/20/24 (Aspirin Childrens) atorvastatin 20 mg tablet 20 mg PO DAILY 06/20/24 06/20/24 fluticasone propionate 50 2 spray intranasal BID 06/20/24 06/20/24 mcg/actuation nasal spray,suspension levothyroxine 112 mcg tablet 112 mcg PO DAILYBB 06/20/24 06/20/24 lisinopril 10 mg tablet 10 mg PO QPM 06/20/24 06/20/24 meclizine 25 mg tablet 25 mg PO TID PRN Dizziness 06/20/24 06/20/24 multivitamin 1 tab PO DAILY 06/20/24 06/20/24 omeprazole 20 mg capsule,delayed 20 mg PO QAM 06/20/24 06/20/24 release propylene glycol 0.6 % eye drops 1 drp OPB DAILY 06/20/24 06/20/24 (Systane Balance) Results & Data (ED) Vital Signs Vital Signs - 24 hr 06/20/24 13:01 06/20/24 13:23 06/20/24 13:36 Temperature 36.3 C L Temperature Source Temporal Artery Scan Pulse Rate 98 H 81 Pulse Rate [Left Finger] 83 Pulse Rhythm [Left Finger] Regular Pulse Strength [Left Finger] Normal Respiratory Rate 94 H 20 Respiratory Effort / Characteristics Non-Labored Spontaneous Non-Labored Respiratory Depth Normal Normal Respiratory Pattern Regular Blood Pressure 167/95 H Blood Pressure [Left Arm] 167/78 H Blood Pressure Mean 119 Blood Pressure Mean [Left Arm] 107 Blood Pressure Position Sitting Blood Pressure Position [Left Arm] Lying Pulse Oximetry 95 95 Oxygen Delivery Method Room Air Room Air Sepsis Recent Fever Within 48 Hours No Sepsis New/Unexplained Change in Mental Status N/A Sepsis Action Taken by Nursing No Action Required 06/20/24 14:10 Temperature Temperature Source Pulse Rate Pulse Rate [Left Finger] 78 Pulse Rhythm [Left Finger] Regular Pulse Strength [Left Finger] Normal Respiratory Rate 23 Respiratory Effort / Characteristics Non-Labored Respiratory Depth Normal Respiratory Pattern Regular Blood Pressure Blood Pressure [Left Arm] 152/68 H Blood Pressure Mean Blood Pressure Mean [Left Arm] 96 Blood Pressure Position Blood Pressure Position [Left Arm] Lying Pulse Oximetry 96 Oxygen Delivery Method Room Air Sepsis Recent Fever Within 48 Hours Sepsis New/Unexplained Change in Mental Status Sepsis Action Taken by Usp Medications Current Medication List: was personally reviewed by me Laboratory Data Attestation: I reviewed the patient's lab results. 06/20/24 13:09 06/20/24 14:43 Lab Results 06/20/24 06/20/24 06/20/24 Range/Units 13:09 13:49 14:43 WBC 7.21 (4.8-10.8) K/ul RBC 4.73 (4.20-5.40) M/uL Hgb 12.9 (12.0-16.0) g/dl Hct 39.1 (37.0-47.0) % MCV 82.7 (80.0-100.0) fL MCH 27.3 (25.0-34.0) pg MCHC 33.0 (32.0-36.0) g/dL RDW Std Deviation 41.3 (36.4-46.3) fL RDW Coeff of Paul 13.9 (11.5-14.5) % Plt Count 413 H (130-400) K/uL MPV 9.5 (9.4-12.4) fL Immature Gran % (Auto) 0.3 % Neut % (Auto) 63.2 % Lymph % (Auto) 25.0 % Starr % (Auto) 9.7 % Eos % (Auto) 1.0 % Baso % (Auto) 0.8 % Neut # (Auto) 4.56 (1.40-6.50) K/uL Lymph # (Auto) 1.80 (1.20-3.40) K/uL Starr # (Auto) 0.70 H (0.11-0.59) K/uL Eos # (Auto) 0.07 (0.00-0.50) K/uL Baso # (Auto) 0.06 (0.00-0.20) K/uL Immature Gran # (Auto) 0.02 (0.01-0.20) K/uL Sodium Cancelled 134 L Potassium Cancelled 4.3 Chloride Cancelled 103 Carbon Dioxide Cancelled 22 Anion Gap Cancelled 9 BUN Cancelled 15 Creatinine Cancelled 0.70 Est Cr Clr Drug Dosing Cancelled 75.4 Est GFR ( Amer) Cancelled 96.9 Est GFR (Non-Af Amer) Cancelled 83.6 BUN/Creatinine Ratio Cancelled 21.4 H Glucose Cancelled 103 H Calcium Cancelled 9.5 Total Bilirubin Cancelled 0.5 AST Cancelled 20 ALT Cancelled 18 Alkaline Phosphatase Cancelled 100 Total Protein Cancelled 7.6 Albumin Cancelled 4.2 Globulin Cancelled 3.4 Albumin/Globulin Ratio Cancelled 1.2 Urine Color Dark Yellow Urine Appearance Cloudy A (Clear) Urine pH 5.0 (4.5-7.5) Ur Specific [place] 1.020 (1.000-1.030) Urine Protein Trace H (Negative) Urine Glucose (UA) Negative (Negative) Urine Ketones Negative (Negative) Urine Blood Negative (Negative) Urine Nitrite Negative (Negative) Urine Bilirubin Negative (Negative) Urine Urobilinogen Negative (Negative) Ur Leukocyte Esterase 3+ H (Negative) Urine WBC (Auto) >50 H (0-5) /hpf Urine RBC (Auto) 3-5 H (0-2) /hpf U Hyaline Cast (Auto) 0-2 (0-2) /lpf U Epithel Cells (Auto) 0-2 (0-2) /hpf Urine Bacteria (Auto) None Seen (None Seen) Hyaline Casts Present A (None Presnt) /lpf Administered Medications Discontinued Medications Sodium Chloride (Nss) 500 mls @ 999 mls/hr IV .Q31M ONE Stop: 06/20/24 14:33 Last Admin: 06/20/24 14:13 Dose: 999 mls/hr Documented By: SIMON Ceftriaxone Sodium (Rocephin) 2,000 mg in 50 mls @ 100 mls/hr IV NOW STA Stop: 06/20/24 14:58 Last Admin: 06/20/24 14:44 Dose: 100 mls/hr Documented By: SIMON Imaging Data Radiologist's Impression: Abdomen/Pelvis CT 06/20/24 14:[address] WITHOUT CONTRAST CT DOSE: 1653.43 mGy.cm HISTORY: flank pain, recent uti TECHNIQUE: Multiaxial CT images of the abdomen and pelvis were performed without contrast. A dose lowering technique was utilized adhering to the principles of WILFRIDRA. COMPARISON STUDY: Abdomen and pelvis CT 07/08/2015. FINDINGS: A few subcentimeter nodules at the lung bases remain stable and are considered to be benign. No pneumoperitoneum. No pneumatosis. Old right pubic ring fracture. There is an acute mild superior endplate compression fracture at L3 with 3 mm of retropulsion resulting in mild central canal narrowing. This is better appreciated on the same day lumbar spine CT. The gallbladder is mildly distended. This has slightly improved. No gallbladder wall thickening. No hepatic or splenic masses. The adrenal glands and pancreas are unremarkable. Mild bilateral cortical renal scarring/atrophy. No renal or ureteral stones. No hydronephrosis. There is a single enlarged right para-aortic lymph node on image 94 measuring 2.7 x 1.9 cm. No additional enlarged retroperitoneal or pelvic lymph nodes. Calcified plaque within the normal caliber abdominal aorta. The uterus and bilateral adnexa are unremarkable. Asymmetric left bladder wall thickening which contains an 8 mm nodular component on image 262. Mild fat stranding along the left side of the bladder wall. There are are a few punctate foci of gas within the bladder lumen. Suboptimal evaluation for bowel pathology due to the lack of intravenous and oral contrast. However, there is no definite bowel wall thickening or obstruction. Colonic diverticulosis. No evidence for acute diverticulitis. Normal appendix. Posterior decompression and fusion at L5- S1 with pedicle screws and rods. IMPRESSION: 1. An acute mild superior endplate compression fracture at L3. This is better appreciated on the same day lumbar spine CT 2. Asymmetric left-sided bladder wall thickening with adjacent fat stranding. This contains an 8 mm nodular component. This could represent an asymmetric cystitis. However, urology consultation recommended to exclude the possibility of underlying bladder mass. 3. No renal or ureteral stones. No hydronephrosis. 4. A single enlarged right periaortic lymph node which is indeterminate. 3 month abdomen and pelvis CT follow-up recommended to ensure stability/resolution. ACT 112: Positive. There are findings on this exam that require communication between the performing entity and the patient following Patient Test Result Information Act ([place] Act 112) guidelines. Electronically signed by: Jared Mann M.D. 06/20/2024 2:[address] 06/20/24 14:[address] DOSE: HISTORY: history of surgery, increased pain TECHNIQUE: Multiaxial CT images of the lumbar spine were performed and reformatted in the sagittal and coronal plane without the use of contrast. A dose lowering technique was utilized adhering to the principles of ALARA. COMPARISON: None. FINDINGS: Posterior decompression and fusion at L5-S1 with pedicle screws and rods. The hardware is intact. No abnormal periprosthetic lucency. There is an acute mild superior endplate compression fracture at L3 demonstrating up to 3 mm of retropulsion and mild central canal narrowing at this level. The L3-L4 disc spaces partially fused. Severe facet degenerative changes at L4-5. Moderate facet degenerative changes throughout the remaining lumbar spine. Moderate to severe disc space narrowing at L1-L2. The visualized sacrum is intact. A single enlarged right periaortic lymph node is better appreciated on the same day abdomen and pelvis CT. This is best seen on axial image 136. IMPRESSION: 1. An acute mild superior endplate compression fracture at L3 demonstrating 3 mm of retropulsion and mild central canal narrowing. 2. Degenerative and postoperative changes as described above. 3. A single enlarged right periaortic lymph node again noted. ACT 112: Negative or not required by law. Electronically signed by: Jared Mann M.D. 06/20/2024 2:54 PM Discharge Plan Visit Data Chief Complaint: Back Injury/Pain Stated Complaint: FATIGUE, LOW BACK PAIN, LOW APPETITE, R LEG TINGLE ED Provider: Natalio Nichols Discharge Problem: Weakness, Acute UTI, Failure of outpatient treatment, Lumbar compression fracture Patient Disposition: Admitted As Inpatient Condition: Fair Forms Stand Alone Forms: [facility] [employer] Prescriptions Prescriptions: No Action Ascorbic Acid (Vitamin C Unknown Dose) tablet 500 mg PO QAM Qty: 0 COENZYME Q10 (UBIDECARENONE) (COQ-10) 100 MG capsule 100 mg PO QAM Qty: 0 Calcium/Vitamin D (Os-Amarjit 500 Plus D) tablet 1 tab PO QAM Qty: 0 [id number] C- (GLUCOSAMINE CHONDROITIN) 1 TAB tablet 1 tab PO BID Qty: 0 atorvastatin 20 mg tablet 20 mg PO DAILY lisinopril 10 mg tablet 10 mg PO QPM omeprazole 20 mg capsule,delayed release(DR/EC) 20 mg PO QAM fluticasone propionate 50 mcg/actuation spray,suspension 2 spray INTRANASAL BID levothyroxine 112 mcg tablet 112 mcg PO DAILYBB aspirin [Aspirin Childrens] 81 mg Tablet,Chewable 81 mg PO QAM multivitamin Tablet 1 tab PO DAILY meclizine 25 mg Tablet 25 mg PO TID PRN (Reason: Dizziness) Systane Balance 0.6 % Drops 1 drp OPB DAILY Referrals Referrals: Kirsten Myers DO [Primary Care Provider] - Discharge Problem: Lumbar compression fracture Qualifiers: Encounter type: initial encounter Lumbar vertebra fracture level: L3 Qualified Code(s): S32.030A - Wedge compression fracture of third lumbar vertebra, initial encounter for closed fracture
[2024-06-20] MEDS: cefTRIAXone SODIUM 2,000 MG/50 ML BAG IV STA (14:44)
--- NOTE | 2024-06-20 14:53 | CT Scan Report ---
ABDOMEN AND PELVIS CT WITHOUT CONTRAST CT DOSE: 1653.43 mGy.cm HISTORY: flank pain, recent uti TECHNIQUE: Multiaxial CT images of the abdomen and pelvis were performed without contrast. A dose lo wering technique was utilized adhering to the principles of ALARA. COMPARISON STUDY: Abdomen and pelvis CT 07/08/2015. FINDINGS: A few subcentimeter nodules at the lung bases remain stable and are considered to be benign . No pneumoperitoneum. No pneumatosis. Old right pubic ring fracture. There is an acute mild superior endplate compression fracture at L3 with 3 mm of retropulsion resulting in mild central canal narrow ing. This is better appreciated on the same day lumbar spine CT. The gallbladder is mildly distended. This has slightly improved. No gallbladder wall thickening. No hepatic or splenic masses. The adrena l glands and pancreas are unremarkable. Mild bilateral cortical renal scarring/atrophy. No renal or u reteral stones. No hydronephrosis. There is a single enlarged right para-aortic lymph node on image 9 4 measuring 2.7 x 1.9 cm. No additional enlarged retroperitoneal or pelvic lymph nodes. Calcified candy que within the normal caliber abdominal aorta. The uterus and bilateral adnexa are unremarkable. Asym metric left bladder wall thickening which contains an 8 mm nodular component on image 262. Mild fat s tranding along the left side of the bladder wall. There are are a few punctate foci of gas within the bladder lumen. Suboptimal evaluation for bowel pathology due to the lack of intravenous and oral con trast. However, there is no definite bowel wall thickening or obstruction. Colonic diverticulosis. No evidence for acute diverticulitis. Normal appendix. Posterior decompression and fusion at L5-S1 with pedicle screws and rods. IMPRESSION: 1. An acute mild superior endplate compression fracture at L3. This is better appreciated on the same day lumbar spine CT 2. Asymmetric left-sided bladder wall thickening with adjacent fat stranding. This contains an 8 mm n odular component. This could represent an asymmetric cystitis. However, urology consultation recommen ded to exclude the possibility of underlying bladder mass. 3. No renal or ureteral stones. No hydronephrosis. 4. A single enlarged right periaortic lymph node which is indeterminate. 3 month abdomen and pelvis C T follow-up recommended to ensure stability/resolution. ACT 112: Positive. There are findings on this exam that require communication between the performing entity and the patient following Patient Test Result Information Act ([place] Act 112) guidelines. Electronically signed by: Jared Mann M.D. 06/20/2024 2:51 PM
--- NOTE | 2024-06-20 14:55 | CT Scan Report ---
LUMBAR SPINE CT CT DOSE: HISTORY: history of surgery, increased pain TECHNIQUE: Multiaxial CT images of the lumbar spine were performed and reformatted in the sagittal an d coronal plane without the use of contrast. A dose lowering technique was utilized adhering to the principles of ALARA. COMPARISON: None. FINDINGS: Posterior decompression and fusion at L5-S1 with pedicle screws and rods. The hardware is i ntact. No abnormal periprosthetic lucency. There is an acute mild superior endplate compression fract ure at L3 demonstrating up to 3 mm of retropulsion and mild central canal narrowing at this level. Th e L3-L4 disc spaces partially fused. Severe facet degenerative changes at L4-5. Moderate facet degene rative changes throughout the remaining lumbar spine. Moderate to severe disc space narrowing at L1-L 2. The visualized sacrum is intact. A single enlarged right periaortic lymph node is better appreciat ed on the same day abdomen and pelvis CT. This is best seen on axial image 136. IMPRESSION: 1. An acute mild superior endplate compression fracture at L3 demonstrating 3 mm of retropulsion and mild central canal narrowing. 2. Degenerative and postoperative changes as described above. 3. A single enlarged right periaortic lymph node again noted. ACT 112: Negative or not required by law. Electronically signed by: Jarde Mann M.D. 06/20/2024 2:54 PM
[2024-06-20 15:24] LABS: Albumin Globulin Ratio 1.2 (0.9-2); Albumin Level 4.2 gm/dl (3.4-5.0); BUN Creatinine Ratio 21.4 (10-20); Bilirubin,Total 0.5 mg/dl (0.2-1.0); Calcium 9.5 mg/dl (8.6-10.3); Creatinine Clr Calc Pharmacy 75.4 ml/min; Est GFR (African American) 96.9 ml/min; Est GFR (Non-African American) 83.6 ml/min; Globulin 3.4 gm/dl (2.5-4.0); Potassium 4.3 mmol/L (3.5-5.1); Total Protein 7.6 gm/dl (6.0-8.3)
--- NOTE | 2024-06-20 15:55 | History & Physical Report ---
Date of Service June 20, 2024 Assessment & Plan (1) Intractable back pain: Plan: Back pain, acute compression fracture With history of prior lumbar decompression and fusion Patient was at the [facility] and noticed additional radicular symptoms radiating down the back of her leg and thigh, and was sleeping on a different mattress. CT with acute superior endplate compression fracture with 3 mm retropulsion, mild central canal stenosis without severe/critical stenosis noted - Was in wheelchair at [facility], ?rolling/bouncing injury - Calcitonin, lidocaine path, multimodal pain control (2) UTI (urinary tract infection): Plan: Recent UTI. Asymmetric bladder thickening potentially malignancy, patient with family history of transitional cell carcinoma in her mother. She is a non- smoker ? Asymmetric cystitis malignancy not excluded on CT UCx from 06/13/2024 reviewed at [facility]. Positive for E. coli, resistant to ampicillin and intermittent resistance to Unasyn, otherwise pansensitive. Specifically sensitive to Bactrim UA remains with high levels of leukocytes but no nitrites/bacteria. - Endorses ongoing polyuria/frequency. Given persistent sx will follow culture and tx with rocephin on admission. Asymmetric bladder wall thickening: Urology consulted? Cystitis for malignancy R/L (3) Lumbar stenosis with neurogenic claudication: Plan: - As noted, CT as above Plan Chronic stable issues Hypothyroidism: Continue home meds GEORGE: Continue CPAP Hyperlipidemia: Continue statin Hypertension: Continue lisinopril 10 mg daily, aspirin 81 mg daily DVT PPx: Lovenox CODE: Full Diet: Regular Dispo: M/S History of Present Illness Primary Care Provider: DO Sherie Santos is a 79-year-old female with past medical history of recent UTI on Bactrim, hyperlipidemia, hypertension, GERD, lumbar stenosis with claudication who presented to the ER with diminished activity, right leg numbness/tingling, and gradually increasing back pain of 1 week. She has no leukocytosis, creatinine is at baseline, UA is with a large number of white blood cells and casts but no bacteria or nitrites. Lumbar spine CT shows an acute mild superior endplate compression fracture at L3 with 3 mm of retropulsion and mild central canal narrowing. Degenerative changes are noted. No periprosthetic lucency at her prior decompression/fusion L5-S1 is seen. CTA/P redemonstrates compression fracture is noted. Additionally an asymmetric left-sided bladder wall thickening with fat stranding is noted with a 8 mm nodular component. This could represent asymmetric cystitis/UTI; however bladder mass is not excluded and urologic consultation is recommended. Right periaortic lymph node indeterminate recommended for 3-month CT reevaluation Sherie cardenasts she gets chronic pain in her RIGHT arm in and in her RIGHT thigh. Leg pain goes down her leg on the right, but resolves copmletely when she repositions herself. Denies acute weakness or change, although notes her back overall hurts more than normal. INcreased back pain and more difficulty transferring from bed due to back and leg pain in the last week or two. Pain improves once she is up and ambulating. No fever, chills, sweats, chest pain, or chest pressure. Did have chills and felt poorly last week but symptoms improved for the most part. Took all 5 days of bactrim, last dose was thursday of last week (4 days ago). Does have intermittent abdominal discomfort with constpiation at baseline, no pain at time of assessment and nochange in pain. Back pain in across her low back and down in right leg, improves with rolling on her side. Medical History: Reviewed Medications: Reviewed Surgical History: Reviewed Family history: Reviewed Allergies: Reviewed Social History: Reviewed Full Code Allergies Allergy/AdvReac Type Severity Reaction Status Date / Time No Known Drug Allergies Allergy Unknown . Verified 06/20/24 16:12 METAL Allergy Unknown BUMPS ON Uncoded 06/20/24 16:12 SKIN Home Medications Medication Instructions Recorded Confirmed Type acetaminophen 500 mg tablet 1,000 mg PO Q6H PRN Fever Or Pain 06/20/24 06/20/24 History (Tylenol Extra Strength) aspirin 81 mg chewable tablet 81 mg PO QAM 06/20/24 06/20/24 History (Aspirin Childrens) atorvastatin 20 mg tablet 20 mg PO DAILY 06/20/24 06/20/24 History calcium carbonate 500 mg-vitamin 1 tab PO QAM 06/20/24 06/20/24 History D3 10 mcg (400 unit) tablet (Calcium 500 With D) cholecalciferol (vitamin D3) 25 25 mcg PO DAILY 06/20/24 06/20/24 History mcg (1,000 unit) tablet coenzyme Q10 100 mg capsule (Co 200 mg PO DAILY 06/20/24 06/20/24 History Q-10) fluticasone propionate 50 2 spray intranasal BID 06/20/24 06/20/24 History mcg/actuation nasal spray,suspension bhlpnkykdhq-oaw-rztoqmzor-vitC 2 cap PO DAILY 06/20/24 06/20/24 History capsule (Glucosamine Complex-MSM capsule) levothyroxine 112 mcg tablet 112 mcg PO DAILYBB 06/20/24 06/20/24 History lisinopril 10 mg tablet 10 mg PO QPM 06/20/24 06/20/24 History lorazepam 0.5 mg tablet 0.5 mg PO DAILY PRN Anxiety 06/20/24 06/20/24 History meclizine 25 mg tablet 25 mg PO TID PRN Dizziness 06/20/24 06/20/24 History multivitamin 1 tab PO DAILY 06/20/24 06/20/24 History omega-3 fatty acids-fish oil 360 1 cap PO DAILY 06/20/24 06/20/24 History mg-1,200 mg capsule omeprazole 20 mg capsule,delayed 20 mg PO QAM 06/20/24 06/20/24 History release propylene glycol 0.6 % eye drops 1 drp OPB DAILY 06/20/24 06/20/24 History (Systane Balance) Past Med/Surg History Problem List (Updated 06/03/18 @ 02:02 by [employer]) UTI (urinary tract infection) Osteoporosis (Chronic) Hypothyroidism (Chronic) GERD (gastroesophageal reflux disease) (Chronic) HLD (hyperlipidemia) (Chronic) HTN (hypertension) (Chronic) S/P tonsillectomy and adenoidectomy (Chronic) Status post total knee replacement, right (Chronic) Intractable back pain (Acute) Lumbar stenosis with neurogenic claudication (Acute) Post-operative state Social History Smoking Status: Never smoker Feels Safe at Home: Yes Physical Exam Physical Exam: General: A&Ox3. NAD. Cooperative. HEENT: Atraumatic, normocephalic. Pulm: CTAB A&P. -wheezes, -rales, -rhonchi. Symmetrical chest rise. No increased work of breathing. No respiratory distress. Cardiac: RRR, -mrg. Radial pulses intact and symmetrical. Abdominal: Nontender, nondistended, soft. BS present. Extremities: Hip flexion, ankle dorsiflexion/plantarflexion, welfare centre manager strength 5/5 bilaterally without asymmetry. Does have some pain on right hip flexion. Sensation to soft touch is intact in hands, forearms, feet, and distal lower extremity bilaterally without asymmetry at time of admission Results & Data Results & Data Vital Signs (Past 12 Hours) Vital Signs Temp Pulse Pulse Resp BP BP Pulse Ox 06/20/24 14:10 78 23 152/68 H 96 06/20/24 13:36 83 20 167/78 H 95 06/20/24 13:23 81 06/20/24 13:01 36.3 C L 98 H 94 H 167/95 H 95 O2 Del Method 06/20/24 14:10 Room Air 06/20/24 13:36 Room Air 06/20/24 13:23 06/20/24 13:01 Room Air PG Care Time/CCT Total # of Minutes Spent Total Time Spent with Patient: Total time spent is greater than 50% in coordination of care (as documented) at patient's floor/unit and/or counseling patient: Coding Level of Care Code 49006 INT INP/OBS CARE 3/75MIN Diagnoses Intractable back pain M54.9 UTI (urinary tract infection) N39.0 Lumbar stenosis with neurogenic claudication M48.062
[2024-06-20] MEDS: MoRPHine SULFATE 2 MG/ML CARP IV PRN (16:59)
[2024-06-20] MEDS: CALCITONIN SALMON NA 200 IU/AC 3.7 ML BTL SCH (17:02)
[2024-06-20] MEDS: LIDOCAINE 5% 1 PATCH TD STA (17:03)
[2024-06-20] MEDS ORDERED: POLYETHYLENE (MIRALAX) 17 GM PACK PO PRN (18:19)
[2024-06-20] MEDS ORDERED: ACETAMINOPHEN 325 MG TAB PO PRN (18:19)
[2024-06-20] MEDS ORDERED: ONDANSETRON INJ 2 MG/ML 2 ML VIAL IV PRN (18:19)
[2024-06-20] MEDS: ENOXAPARIN INJ 40 MG/0.4 ML SYR SQ SCH (20:23)
[2024-06-21 06:31] LABS: Basophils # (auto) 0.05 K/uL (0.00-0.20); Basophils % (auto) 0.8 %; Eosinophils # (auto) 0.15 K/uL (0.00-0.50); Eosinophils % (auto) 2.3 %; Hematocrit (blood only) 37.5 % (37.0-47.0); Immature Granulocytes # (auto) 0.02 K/uL (0.01-0.20); Immature Granulocytes % (auto) 0.3 %; Lymphocytes % (auto) 38.1 %; Mean Corpuscular Hemoglobin 27.1 pg (25.0-34.0); Mean Corpuscular Volume 84.7 fL (80.0-100.0); Mean Platelet Volume 9.2 fL (9.4-12.4); Monocytes % (auto) 10.7 %; Neutrophils # (auto) 3.15 K/uL (1.40-6.50); Neutrophils % (auto) 47.8 %; Platelet Count 378 K/uL (130-400); RDW Coefficient of Variation 13.9 % (11.5-14.5); Red Blood Count 4.43 M/uL (4.20-5.40); White Blood Count 6.57 K/ul (4.8-10.8)
[2024-06-21 06:51] LABS: BUN Creatinine Ratio 17.9 (10-20); Calcium 9.1 mg/dl (8.6-10.3); Creatinine Clr Calc Pharmacy 67.7 ml/min; Est GFR (Non-African American) 73.3 ml/min; Potassium 4.8 mmol/L (3.5-5.1)
[2024-06-21] MEDS: ACETAMINOPHEN 325 MG TAB PO PRN (09:52)
--- NOTE | 2024-06-21 10:08 | Urology Consultation ---
Date of Consultation June 21, 2024 Assessment & Plan (1) Bladder wall thickening: (2) UTI (urinary tract infection): Plan 79 yo/F admitted with back pain/acute compression fracture and concern for UTI. CT abdomen pelvis on arrival demonstrated asymmetric left-sided bladder wall thickening with fat stranding with an 8 mm nodular component, no renal or ureteral stones, no hydronephrosis. - Afebrile with stable vitals. - Labs show no leukocytosis and normal renal function. - Urine culture preliminary no growth. On Ceftriaxone. She recently completed course of Bactrim as outpatient for UTI ( no culture data available for review). - Voiding spontaneously, continue to monitor. Bladder scan PRN. - We reviewed her CT findings and the bladder wall thickening. We discussed potential etiologies of bladder wall thickening including cystitis, underlying mass, or other. Discussed recommendation for further work-up with cystoscopy which can be performed as an outpatient. Patient/family agreeable. - Will send message to arrange outpatient follow-up for cystoscopy to further evaluate bladder findings. - Continue antibiotics and tailor per culture sensitivities. - Continue supportive care. - Patient/family agreeable to plan, all questions were answered. - Urology will sign-off. Please call with any further questions or concerns. History of Present Illness Attending Physician: Jerman Marcus MD History of Present Illness 79 year old female with past medical history of recent UTI on Bactrim, hyperlipidemia, hypertension, GERD, lumbar stenosis with claudication who presented to the ER with worsening back pain. On arrival she was afebrile and hemodynamically stable. Labs showing no leukocytosis and normal renal function. Urinalysis with negative blood, negative nitrite 3+ LE,> 50 WBC, 35 RBC, negative bacteria. Urine culture pending. CT abdomen pelvis noted an asymmetric left-sided bladder wall thickening with fat stranding with an 8 mm nodular component, no renal or ureteral stones, no hydronephrosis. She is admitted to medicine service for further management. She is on empiric ceftriaxone. Patient seen at bedside today. Awake, sitting up in bed on arrival. No acute distress. Daughter at bedside. Still with back pain. Denies hematuria or dysuria. Reports urinary frequency. Feels she is emptying well. No flank pain. Denies fever, chills, nausea, vomiting. She does have occasional leakage at baseline. Wears safety pad/depends. Patient reports her urinary frequency and UTI symptoms started approximately 3 weeks ago while to [facility] [facility]. Denies prior urological history. Denies history of tobacco use. Allergies Allergy/AdvReac Type Severity Reaction Status Date / Time No Known Drug Allergies Allergy Unknown . Verified 06/20/24 16:12 METAL Allergy Unknown BUMPS ON Uncoded 06/20/24 16:12 SKIN Home Medications Medication Instructions Recorded Confirmed Type acetaminophen 500 mg tablet 1,000 mg PO Q6H PRN Fever Or Pain 06/20/24 06/20/24 History (Tylenol Extra Strength) aspirin 81 mg chewable tablet 81 mg PO QAM 06/20/24 06/20/24 History (Aspirin Childrens) atorvastatin 20 mg tablet 20 mg PO DAILY 06/20/24 06/20/24 History calcium carbonate 500 mg-vitamin 1 tab PO QAM 06/20/24 06/20/24 History D3 10 mcg (400 unit) tablet (Calcium 500 With D) cholecalciferol (vitamin D3) 25 25 mcg PO DAILY 06/20/24 06/20/24 History mcg (1,000 unit) tablet coenzyme Q10 100 mg capsule (Co 200 mg PO DAILY 06/20/24 06/20/24 History Q-10) fluticasone propionate 50 2 spray intranasal BID 06/20/24 06/20/24 History mcg/actuation nasal spray,suspension xcbuftvgmjz-gwu-juyrqgrws-vitC 2 cap PO DAILY 06/20/24 06/20/24 History capsule (Glucosamine Complex-MSM capsule) levothyroxine 112 mcg tablet 112 mcg PO DAILYBB 06/20/24 06/20/24 History lisinopril 10 mg tablet 10 mg PO QPM 06/20/24 06/20/24 History lorazepam 0.5 mg tablet 0.5 mg PO DAILY PRN Anxiety 06/20/24 06/20/24 History meclizine 25 mg tablet 25 mg PO TID PRN Dizziness 06/20/24 06/20/24 History multivitamin 1 tab PO DAILY 06/20/24 06/20/24 History omega-3 fatty acids-fish oil 360 1 cap PO DAILY 06/20/24 06/20/24 History mg-1,200 mg capsule omeprazole 20 mg capsule,delayed 20 mg PO QAM 06/20/24 06/20/24 History release propylene glycol 0.6 % eye drops 1 drp OPB DAILY 06/20/24 06/20/24 History (Systane Balance) Patient History Social History Smoking Status: Never smoker Hx Alcohol Use: No Hx Substance Use: No Preferred Language: Croatian Communication Ability: Effective Field Administrator Required: No Beliefs That Will Affect Care: None Current Living Situation: Alone Other Information That Helps Us Care for You: No Feels Safe at Home: Yes Safety Concerns: Feels Safe At This Time Review of Systems Review of Systems: All systems reviewed & are unremarkable except as noted in HPI & below Physical Exam Constitutional: well developed and well nourished; no acute distress Respiratory: normal respiratory effort; no respiratory distress and no labored breathing Musculoskeletal: Head/Neck/Chest: normocephalic Skin: No visible rashes or lesions to exposed skin areas Neurologic: moves all extremities and awake Psychiatric: A+Ox3, euthymic affect Results & Data Vital Signs (Past 12 Hours) Vital Signs Temp Pulse Resp BP Pulse Ox O2 Del Method 06/21/24 07:05 36.8 C 67 18 153/79 H 95 Room Air 06/21/24 07:00 Room Air, CPAP PG Care Time/CCT Total # of Minutes Spent Total Time Spent with Patient: Total time spent is greater than 50% in coordination of care (as documented) at patient's floor/unit and/or counseling patient: Coding Level of Care Code 33630 INT INP/OBS CARE 2/55MIN Diagnoses Bladder wall thickening N32.89 UTI (urinary tract infection) N39.0
[2024-06-21] MEDS ORDERED: methylPREDNISolone 10 mg/mL (For Ped Dose < 7mg) IV SCH (10:45)
[2024-06-21] MEDS: methylPREDNISolone 40 MG in SYRINGE 0 ML IV SCH (12:11)
[2024-06-21] MEDS: cefTRIAXone SODIUM 2,000 MG/50 ML BAG IV SCH (14:02)
--- NOTE | 2024-06-21 14:18 | Hospitalist Progress Note ---
Date of Service June 21, 2024 Assessment & Plan (1) Intractable back pain: Plan: Due to acute L3 compression fracture seen on CT scan. Pain is much improved. She is now on parenteral steroid therapy and will be discharged hopefully tomorrow, June 22, on a prednisone oral tapering dose. (2) UTI (urinary tract infection): Plan: Suspected on admission. Await final urine culture results. Continue Rocephin, day 2. Urology consultation appreciated. Abnormal appearance of bladder on imaging warrants outpatient cystoscopy evaluation. (3) Lumbar stenosis with neurogenic claudication: Plan: Prior history of lumbar surgery. Currently on parenteral methylprednisolone. She will be discharged on a prednisone tapering dose. Pain control measures as needed Plan Hopeful discharge to home tomorrow, June 22 Admission and Anticipated Discharge Date Admission Date: June 20, 2024 Subjective Alert and oriented. No distress. Family is at the bedside. Her back pain is much better. She is now on intravenous Solu-Medrol. Urine culture is revealing no growth. She is currently on Rocephin, day 2. Hopefully she can go home tomorrow, June 22, on a oral prednisone tapering dose. Review of Systems 2 Review of Systems: Constitutionalno fever or chills ENTno blurred vision, no double vision, no epistaxis, no sore throat Respiratoryno cough, no wheezing, no shortness of breath Cardiacno palpitations, no chest pain, no syncope Susie nausea, vomiting, diarrhea, melena, hematochezia GUno urinary retention, no urinary incontinence, no dysuria, no hematuria Musculoskeletallow back pain present on admission has nearly resolved Skinno bruising, no rashes, no pruritus Neurono isolated weakness, no paresthesia Psychno depression, no anxiety Physical Exam 2 Physical Exam: General-alert and oriented x3, no fever, no chills HEENT-head atraumatic and normocephalic, pupils equal and reactive to light, extraocular muscles intact Neck-no lymphadenopathy or thyromegaly, trachea midline Chest-clear to auscultation. No rales, wheezing or rhonchi Cardiac-regular rate and rhythm, normal S1 and S2 Abdomen-normal bowel sounds, no hepatosplenomegaly Extremities-no cyanosis, clubbing, or edema Neuro-cranial nerves II through XII intact, motor and sensory function within normal limits, strength symmetrical, no focal deficits Psych-normal affect, normal mood Results & Data Results & Data Vital Signs (Past 12 Hours) Vital Signs Temp Pulse Resp BP Pulse Ox O2 Del Method 06/21/24 07:05 36.8 C 67 18 153/79 H 95 Room Air 06/21/24 07:00 Room Air, CPAP Laboratory Results 06/21/24 05:38 06/21/24 05:38 PG Care Time/CCT Total # of Minutes Spent Total Time Spent with Patient: Total time spent is greater than 50% in coordination of care (as documented) at patient's floor/unit and/or counseling patient: Coding Level of Care Code 50113 SUB INP/OBS CARE 3/50MIN Diagnoses Intractable back pain M54.9 UTI (urinary tract infection) N39.0 Lumbar stenosis with neurogenic claudication M48.062
[2024-06-21] MEDS ORDERED: LORazepam 0.5 MG TAB PO PRN (16:36)
[2024-06-21] MEDS: PANTOprazole 40 MG TAB PO SCH (17:08)
[2024-06-21] MEDS: ASPIRIN 81 MG ECTAB PO SCH (17:08)
[2024-06-21 19:28] VITALS: TEMP 98.2
[2024-06-21] MEDS: FLUTICASONE PROPIONATE NA SPR 16 GM BTL SCH (20:45)
[2024-06-21] MEDS: CALCIUM 600MG + VIT D 400 IU TAB PO SCH (20:46)
[2024-06-22] MEDS: LEVOTHYROXINE SODIUM 112 MCG TABLET PO SCH (05:33)
[2024-06-22 08:18] LABS: Basophils # (auto) 0.01 K/uL (0.00-0.20); Basophils % (auto) 0.1 %; Hematocrit (blood only) 39.8 % (37.0-47.0); Hemoglobin 12.9 g/dl (12.0-16.0); Immature Granulocytes # (auto) 0.04 K/uL (0.01-0.20); Immature Granulocytes % (auto) 0.4 %; Lymphocytes # (auto) 1.12 K/uL (1.20-3.40); Lymphocytes % (auto) 11.5 %; Mean Corpuscular Hgb Conc 32.4 g/dL (32.0-36.0); Mean Corpuscular Volume 83.4 fL (80.0-100.0); Monocytes # (auto) 0.13 K/uL (0.11-0.59); Monocytes % (auto) 1.3 %; Neutrophils % (auto) 86.7 %; Platelet Count 438 K/uL (130-400); RDW Coefficient of Variation 13.6 % (11.5-14.5); RDW Standard Deviation 41.8 fL (36.4-46.3); Red Blood Count 4.77 M/uL (4.20-5.40)
[2024-06-22 08:32] LABS: BUN Creatinine Ratio 24.6 (10-20); Calcium 9.9 mg/dl (8.6-10.3); Creatinine Clr Calc Pharmacy 76.5 ml/min; Est GFR (African American) 97.3 ml/min; Potassium 4.8 mmol/L (3.5-5.1)
[2024-06-22] MEDS: CHOLECALCIFEROL 25 MCG (1000 UNITS) TAB PO SCH (08:51)
[2024-06-22] MEDS: ATORVASTATIN 20 MG TAB PO SCH (08:51)
[2024-06-22] MEDS: MULTIVITAMIN TAB PO SCH (08:51)
[2024-06-22 08:52] VITALS: BP 156/78; PULSE 67; RESP 16; O2SAT 95
[2024-06-22] MEDS: lisinopril 10 MG TAB PO SCH (08:52)
--- NOTE | 2024-06-22 11:36 | Discharge Summary ---
Discharge Summary Date of Service June 22, 2024 Principal Dx & Hospital Course #1 = Principal Diagnosis (1) Intractable back pain: Due to acute L3 compression fracture seen on CT scan. Pain is much improved. Treated while hospitalized with parenteral steroid therapy and will be discharged today, June 22, on a prednisone oral tapering dose. Use Vicodin 5/325 as needed for back pain (2) UTI (urinary tract infection): Ruled out. Rocephin has been discontinued. Cultures are negative. Bladder imaging is abnormal and she will follow-up with urology as an outpatient for outpatient cystoscopy. (3) Lumbar stenosis with neurogenic claudication: Prior history of lumbar surgery. Improved. Treated while hospitalized with parenteral methylprednisolone. She will be discharged on a prednisone tapering dose. Pain control measures as needed Plan Home todayJune 22 Admission HPI Per Admitting Provider Sherie is a 79-year-old female with past medical history of recent UTI on Bactrim, hyperlipidemia, hypertension, GERD, lumbar stenosis with claudication who presented to the ER with diminished activity, right leg numbness/tingling, and gradually increasing back pain of 1 week. She has no leukocytosis, creatinine is at baseline, UA is with a large number of white blood cells and casts but no bacteria or nitrites. Lumbar spine CT shows an acute mild superior endplate compression fracture at L3 with 3 mm of retropulsion and mild central canal narrowing. Degenerative changes are noted. No periprosthetic lucency at her prior decompression/fusion L5-S1 is seen. CTA/P redemonstrates compression fracture is noted. Additionally an asymmetric left-sided bladder wall thickening with fat stranding is noted with a 8 mm nodular component. This could represent asymmetric cystitis/UTI; however bladder mass is not excluded and urologic consultation is recommended. Right periaortic lymph node indeterminate recommended for 3-month CT reevaluation Sherie reprots she gets chronic pain in her RIGHT arm in and in her RIGHT thigh. Leg pain goes down her leg on the right, but resolves copmletely when she repositions herself. Denies acute weakness or change, although notes her back overall hurts more than normal. INcreased back pain and more difficulty t ransferring from bed due to back and leg pain in the last week or two. Pain improves once she is up and ambulating. No fever, chills, sweats, chest pain, or chest pressure. Did have chills and felt poorly last week but symptoms improved for the most part. Took all 5 days of bactrim, last dose was thursday of last week (4 days ago). Does have intermittent abdominal discomfort with constpiation at baseline, no pain at time of assessment and nochange in pain. Back pain in across her low back and down in right leg, improves with rolling on her side. Medical History: Reviewed Medications: Reviewed Surgical History: Reviewed Family history: Reviewed Allergies: Reviewed Social History: Reviewed Full Code Discharge Exam General-alert and oriented x3, no fever, no chills HEENT-head atraumatic and normocephalic, pupils equal and reactive to light, extraocular muscles intact Neck-no lymphadenopathy or thyromegaly, trachea midline Chest-clear to auscultation. No rales, wheezing or rhonchi Cardiac-regular rate and rhythm, normal S1 and S2 Abdomen-normal bowel sounds, no hepatosplenomegaly Extremities-no cyanosis, clubbing, or edema Neuro-cranial nerves II through XII intact, motor and sensory function within normal limits, strength symmetrical, no focal deficits Psych-normal affect, normal mood Discharge Plan Discharge Items Patient Disposition: Home - Self-Care Reason For Visit: BACK PAIN, COMPRESSION FXR, UTI Discharge Diagnosis: Acute L3 compression fracture due to underlying osteoporosis Condition on Discharge: Good Activity: Resume your previous activity Non-emergency contact: Primary Care Provider Call non-emergency contact if: your symptoms worsen Follow-up/Referrals: Kirsten Myers DO [Primary Care Provider] - Diet: Regular and Heart Healthy Addtl Attending Provider Instructions: Take prednisone in a tapering dose fashion as directed. Use of Vicodin/Campo as needed for back pain. Follow-up with urology for outpatient cystoscopy to evaluate abnormal bladder wall seen on imaging. No evidence of urinary tract infection Pending Studies at Discharge: No Stand-Alone Forms: My [employer], Smoking Cessation Medications and DC Order Prescriptions: New Caltrate 600-D Plus Minerals 600 mg calcium- 800 unit-50 mg Tablet 1 tab PO BID Qty: 60 0RF prednisone 10 mg tablet See Rx Instructions .ROUTE .COMPLEX Qty: 12 0RF Rx Instructions: 10 mg orally 3 times a day for 2 days, then 10 mg twice a day for 2 days, then 10 mg once a day for 2 days, then stop hydrocodone-acetaminophen 5-325 mg tablet 1 tab PO Q6H PRN (Reason: pain) Qty: 14 0RF Continued atorvastatin 20 mg tablet 20 mg PO DAILY lisinopril 10 mg tablet 10 mg PO QPM omeprazole 20 mg capsule,delayed release(DR/EC) 20 mg PO QAM fluticasone propionate 50 mcg/actuation spray,suspension 2 spray INTRANASAL BID levothyroxine 112 mcg tablet 112 mcg PO DAILYBB aspirin [Aspirin Childrens] 81 mg Tablet,Chewable 81 mg PO QAM multivitamin Tablet 1 tab PO DAILY meclizine 25 mg Tablet 25 mg PO TID PRN (Reason: Dizziness) Systane Balance 0.6 % Drops 1 drp OPB DAILY coenzyme Q10 [Co Q-10] 100 mg Capsule 200 mg PO DAILY omega-3 fatty acids-fish oil 360-1,200 mg Capsule 1 cap PO DAILY calcium carbonate-vitamin D3 [Calcium 500 With D] 500 mg-10 mcg (400 unit) Tablet 1 tab PO QAM lorazepam 0.5 mg Tablet 0.5 mg PO DAILY PRN (Reason: Anxiety) cholecalciferol (vitamin D3) 25 mcg (1,000 unit) Tablet 25 mcg PO DAILY Glucosamine Complex-MSM Capsule 2 cap PO DAILY acetaminophen [Tylenol Extra Strength] 500 mg Tablet 1,000 mg PO Q6H PRN (Reason: Fever Or Pain) Discharge Orders: Discharge Order (Routine); Ordered 06/22/24 Ordered By: Allan Do Admission Data Admit Date/Time: 06/21/24 14:32 Attending Provider: Allan Do Admit Provider: Jerman Marcus Primary Care Provider: Kirsten Myers Other Providers: Jerman Marcus; Juan M Ramachandran Hospital Stay Data Consultations 06/20/24 15:31 ED Decision to Admit Stat 06/20/24 18:19 Consult Urology Routine Diagnostic Imagining Performed 06/20/24 14:03 CT abd pelvis wo con Stat CT lumbar spine wo con Stat Pending Results Patient Have Any Pending Studies at Discharge: No Discharge Instructions Given to Patient (Per Discharging Provider) Take prednisone in a tapering dose fashion as directed. Use of Vicodin/Campo as needed for back pain. Follow-up with urology for outpatient cystoscopy to evaluate abnormal bladder wall seen on imaging. No evidence of urinary tract infection Total Time Total Time Spent Total Time Spent (In Minutes): 45 minutes Coding Level of Care Code 59102 INP/OBS DISCH >30 MIN Diagnoses Intractable back pain M54.9 UTI (urinary tract infection) N39.0 Lumbar stenosis with neurogenic claudication M48.062
== END 2024-06-22 14:10 | disposition home or self-care (01) | DRG 544 ==
LOC: ED 12:56 → 3N 12:56 → SUATTDRO 15:57 → 3N 17:50